=== PATIENT | male | born 1930 | race Caucasian/White ===

== ENCOUNTER → 2016-12-06 | Outpatient (CLI) | payer MEDICARE, OTHER ==
[2016-12-06 09:40] LABS: Basophils # (auto) 0 uL; Basophils % (auto) 0.3 % (0.0-2.0); Eosinophils # (auto) 0.2 uL; Eosinophils % (auto) 3.3 % (0.0-7.0); Hematocrit 42.6 % (41.0-53.0); Hemoglobin 13.5 g/dL (13.5-17.5); Lymphocytes # (auto) 0.7 uL; Lymphocytes % (auto) 10.3 % (10.0-50.0); Mean Corpuscular Hemoglobin 28.1 pg (28.0-32.0); Mean Corpuscular Hgb Conc. 31.7 g/dL (32.0-36.0); Mean Corpuscular Volume 88.7 fL (80.0-100.0); Mean Platelet Volume 9.1 fL (7.4-10.4); Monocytes # (auto) 0.5 uL; Monocytes % (auto) 7.3 % (0.0-12.0); Neutrophils # (auto) 5.7 uL; Neutrophils % (auto) 78.8 % (37.0-80.0); Platelet Count (auto) 236 10^3/uL (140-450); Red Cell Distribution Width 16.7 % (11.6-16.0); White Blood Cell 7.3 10^3/uL (4.4-10.8)
[2016-12-06 09:54] LABS: Urine Bilirubin Negative (Negative); Urine Blood Negative /uL (Negative); Urine Color Yellow (Yellow); Urine Glucose Normal (Normal); Urine Ketone Negative (Negative); Urine Nitrite Negative (Negative); Urine RBC 1 /hpf (0 - 3); Urine Squamous Epithelial Cell FEW /hpf (<5); Urine Urobilinogen Normal (Negative)
[2016-12-06 10:18] LABS: Albumin 3.6 g/dL (3.4-5.0); BUN/Creatinine Ratio 18.6; Bilirubin, Total 0.5 mg/dL (0.2-1.0); Calcium 8.4 mg/dL (8.5-10.1); Total Protein 7.6 g/dL (6.4-8.2)
[2016-12-06 10:26] LABS: Potassium 4.4 mmol/L (3.5-5.1)
== END | disposition home or self-care (01) ==
LOC: LAB 07:08
DX: D63.8 Anemia in other chronic diseases classified elsewhere (principal); I63.9 Cerebral infarction, unspecified; R73.9 Hyperglycemia, unspecified
CPT/HCPCS: 36415; 80053; 80061; 81001; 83036; 83540; 83550; 84443; 85025

== ENCOUNTER → 2017-06-06 | Outpatient (CLI) | payer MEDICARE, OTHER ==
[2017-06-06 07:52] LABS: Urine RBC None Seen /hpf (0 - 3)
[2017-06-06 08:01] LABS: Urine Bilirubin Negative (Negative); Urine Blood Negative /uL (Negative); Urine Color Yellow (Yellow); Urine Glucose Normal (Normal); Urine Ketone Negative (Negative); Urine Mucus FEW (None Seen); Urine Nitrite Negative (Negative); Urine Squamous Epithelial Cell FEW /hpf (<5); Urine Urobilinogen Normal (Negative); Urine pH 5.5 (5.0-8.0)
[2017-06-06 08:03] LABS: Basophils # (auto) 0 uL; Basophils % (auto) 0.4 % (0.0-2.0); CONDITION Y; Eosinophils # (auto) 0.3 uL; Eosinophils % (auto) 4.7 % (0.0-7.0); Hemoglobin 13.9 g/dL (13.5-17.5); Lymphocytes % (auto) 14.7 % (10.0-50.0); Mean Corpuscular Hemoglobin 31.3 pg (28.0-32.0); Mean Corpuscular Hgb Conc. 33.8 g/dL (32.0-36.0); Mean Corpuscular Volume 92.5 fL (80.0-100.0); Mean Platelet Volume 8.6 fL (7.4-10.4); Monocytes # (auto) 0.5 uL; Monocytes % (auto) 7.6 % (0.0-12.0); Neutrophils # (auto) 4.7 uL; Neutrophils % (auto) 72.6 % (37.0-80.0); Platelet Count (auto) 251 10^3/uL (140-450); Red Cell Distribution Width 14.9 % (11.6-16.0); White Blood Cell 6.5 10^3/uL (4.4-10.8)
[2017-06-06 08:30] LABS: Albumin 3.6 g/dL (3.4-5.0); BUN/Creatinine Ratio 17.5; Bilirubin, Total 0.5 mg/dL (0.2-1.0); Calcium 8.6 mg/dL (8.5-10.1); Total Protein 7.5 g/dL (6.4-8.2)
== END | disposition home or self-care (01) ==
LOC: LAB 06:39
PROVIDERS: ATTEND Family Medicine
DX: I63.9 Cerebral infarction, unspecified (principal); I10 Essential (primary) hypertension; E78.4 Other hyperlipidemia
CPT/HCPCS: 36415; 80053; 80061; 81001; 82306; 82607; 84443; 85025

== ENCOUNTER → 2017-10-15 | Outpatient (CLI) | payer MEDICARE, OTHER ==
[~2017-10-15] MED LIST: AMLO5TAB2 PO; ASCOCRY2 OR; ATO40T PO; CHOL200031 PO; CLOP75TA28 PO; CYCL1TAB18 PO; FINA1TAB10 OR; LEVO125T6 PO; MULT-775 OR; TELM80TA PO
[2017-10-15 08:28] LABS: Basophils # (auto) 0.1 uL; Basophils % (auto) 0.8 % (0.0-2.0); Eosinophils # (auto) 0.3 uL; Eosinophils % (auto) 5.2 % (0.0-7.0); Hematocrit 35.6 % (41.0-53.0); Hemoglobin 11.4 g/dL (13.5-17.5); Lymphocytes # (auto) 0.8 uL; Lymphocytes % (auto) 13.2 % (10.0-50.0); Mean Corpuscular Hemoglobin 28.7 pg (28.0-32.0); Mean Corpuscular Hgb Conc. 32.1 g/dL (32.0-36.0); Mean Corpuscular Volume 89.5 fL (80.0-100.0); Mean Platelet Volume 8.3 fL (6.9-10.8); Monocytes # (auto) 0.5 uL; Monocytes % (auto) 8.3 % (0.0-12.0); Neutrophils # (auto) 4.6 uL; Neutrophils % (auto) 72.5 % (37.0-80.0); Nucleated Red Blood Cells % 0.1 %; Platelet Count (auto) 296 10^3/uL (140-450); Red Cell Distribution Width 15.8 % (11.8-14.3); White Blood Cell 6.4 10^3/uL (4.4-10.8)
[2017-10-15 08:49] LABS: Albumin 3.7 g/dL (3.4-5.0); BUN/Creatinine Ratio 17.8; Bilirubin, Total 0.5 mg/dL (0.2-1.0); Calcium 8.5 mg/dL (8.5-10.1); Potassium 4.5 mmol/L (3.5-5.1); Total Protein 7.7 g/dL (6.4-8.2)
== END | disposition home or self-care (01) ==
LOC: LAB 06:34
PROVIDERS: ATTEND Family Medicine
DX: E61.1 Iron deficiency (principal); K57.93 Diverticulitis of intestine, part unspecified, without perforation or abscess with bleeding
CPT/HCPCS: 36415; 80053; 85025

== ENCOUNTER 2018-03-13 18:47 | Inpatient (IN) | payer MEDICARE, OTHER ==
[~2018-03-13] VITALS: Ht 170.2 cm; Wt 97.1 kg
[~2018-03-13 18:47] MED LIST changes: -LEVO125T6 PO; +LEVO125T7 PO
[2018-03-13 20:42] LABS: Basophils # (auto) 0 uL; Basophils % (auto) 0.4 % (0.0-2.0); Eosinophils # (auto) 0.2 uL; Eosinophils % (auto) 1.6 % (0.0-7.0); Hematocrit 31.2 % (41.0-53.0); Hemoglobin 10.4 g/dL (13.5-17.5); Lymphocytes # (auto) 0.7 uL; Lymphocytes % (auto) 6.9 % (10.0-50.0); Mean Corpuscular Hemoglobin 29.4 pg (28.0-32.0); Mean Corpuscular Hgb Conc. 33.3 g/dL (32.0-36.0); Mean Corpuscular Volume 88.2 fL (80.0-100.0); Monocytes # (auto) 0.6 uL; Monocytes % (auto) 6.5 % (0.0-12.0); Neutrophils # (auto) 8.5 uL; Neutrophils % (auto) 84.6 % (37.0-80.0); Nucleated Red Blood Cells % 0.1 %; Platelet Count (auto) 232 10^3/uL (140-450); Red Blood Cells 3.54 10^6/uL (4.5-5.90); Red Cell Distribution Width 18.4 % (11.8-14.3)
[2018-03-13 20:59] LABS: Albumin 2.8 g/dL (3.4-5.0); Amylase 52 U/L (25-115); Anion Gap 7 (5-15); BUN/Creatinine Ratio 15.9; Blood Urea Nitrogen 21 mg/dL (7-18); Calcium 7.4 mg/dL (8.5-10.1); Carbon Dioxide 23 mmol/L (21-32); Chloride 113 mmol/L (98-107); GFR African American 66 mL/min; GFR Non-African American 55 mL/min; Glucose 110 mg/dL (74-106); Lipase 278 U/L (73-393); Potassium 4.2 mmol/L (3.5-5.1); Sodium 143 mmol/L (136-145)
[2018-03-13 21:03] LABS: Prothrombin Time 10.9 sec (9.37-12.3)
[2018-03-13 21:04] LABS: Alanine Aminotransferase 17 U/L (16-61); Alkaline Phosphatase 64 U/L (45-117); Aspartate Aminotransferase 13 U/L (15-37); Bilirubin, Total 0.3 mg/dL (0.2-1.0); Total Protein 6.1 g/dL (6.4-8.2)
[2018-03-13] MEDS ORDERED: ONDANSETRON HCL 4 MG/2 ML VIAL IV PRN (23:30)
[2018-03-13] MEDS ORDERED: PANTOPRAZOLE 40 MG/10 ML VIAL IV ONE (23:30)
[2018-03-13] MEDS ORDERED: MORPHINE SULFATE 4 MG/ML SYR/VIAL IV PRN (23:30)
[2018-03-13] MEDS ORDERED: NITROGLYCERIN 0.4 MG SL TAB SL PRN (23:30)
[2018-03-13] MEDS ORDERED: CALCIUM GLUC 4.65meq/50ml D5AE 50 ML IV ONE (23:30)
[2018-03-13 23:59] LABS: Hematocrit 28.4 % (41.0-53.0); Hemoglobin 9.3 g/dL (13.5-17.5)
[2018-03-14] VITALS (10 sets, daily range): BP systolic 102–116; BP diastolic 47–62
[2018-03-14 04:55] LABS: Basophils # (auto) 0 uL; Basophils % (auto) 0.3 % (0.0-2.0); Eosinophils # (auto) 0.1 uL; Eosinophils % (auto) 0.8 % (0.0-7.0); Hematocrit 26.8 % (41.0-53.0); Hemoglobin 8.9 g/dL (13.5-17.5); Lymphocytes # (auto) 0.6 uL; Lymphocytes % (auto) 6.5 % (10.0-50.0); Mean Corpuscular Hemoglobin 29.7 pg (28.0-32.0); Mean Corpuscular Hgb Conc. 33.4 g/dL (32.0-36.0); Monocytes # (auto) 0.9 uL; Monocytes % (auto) 9.2 % (0.0-12.0); Neutrophils # (auto) 8.3 uL; Neutrophils % (auto) 83.2 % (37.0-80.0); Nucleated Red Blood Cells % 0.1 %; Platelet Count (auto) 199 10^3/uL (140-450); Red Cell Distribution Width 18.7 % (11.8-14.3)
[2018-03-14 05:17] LABS: Albumin 2.8 g/dL (3.4-5.0); Calcium 7.8 mg/dL (8.5-10.1); Potassium 4.6 mmol/L (3.5-5.1)
[2018-03-14 05:25] LABS: BUN/Creatinine Ratio 18.4
[2018-03-14 05:36] LABS: Bilirubin, Total 0.4 mg/dL (0.2-1.0)
[2018-03-14 06:09] LABS: Total Protein 5.8 g/dL (6.4-8.2)
[2018-03-14] MEDS: LEVOTHYROXINE SODIUM 50 MCG TAB PO SCH (06:50)
[2018-03-14] MEDS: LOSARTAN POTASSIUM 50 MG TAB PO SCH (10:37)
[2018-03-14] MEDS: PANTOPRAZOLE 40 MG/10 ML VIAL IV SCH ×2 (10:37→21:56)
[2018-03-14] MEDS ORDERED: FOLITAB14 OR (11:12)
[2018-03-14] MEDS ORDERED: OMEP20TA PO (11:12)
[2018-03-14] MEDS: amLODIPine BESYLATE 5 MG TAB PO SCH (11:33)
[2018-03-14] MEDS ORDERED: D5W/SOD CHLO 0.9% 1,000 ML IV ONE (12:30)
[2018-03-14 19:06] LABS: Basophils # (auto) 0 uL; Eosinophils # (auto) 0.2 uL; Hematocrit 24.4 % (41.0-53.0); Lymphocytes # (auto) 1.1 uL; Lymphocytes % (auto) 15.1 % (10.0-50.0); Monocytes # (auto) 0.6 uL; Nucleated Red Blood Cells % 0.1 %; Platelet Count (auto) 203 10^3/uL (140-450)
[2018-03-14 19:08] LABS: Basophils % (auto) 0.4 % (0.0-2.0); Eosinophils % (auto) 3.3 % (0.0-7.0); Hemoglobin 8.3 g/dL (13.5-17.5); Mean Corpuscular Hemoglobin 30.2 pg (28.0-32.0); Mean Corpuscular Hgb Conc. 34.1 g/dL (32.0-36.0); Mean Corpuscular Volume 88.4 fL (80.0-100.0); Monocytes % (auto) 9.2 % (0.0-12.0); Red Blood Cells 2.76 10^6/uL (4.5-5.90); Red Cell Distribution Width 18.2 % (11.8-14.3)
[2018-03-14] MEDS: ATORVASTATIN 20 MG TAB PO SCH (21:56)
[2018-03-14] MEDS: TEMAZEPAM 15 MG CAP PO PRN (21:59)
[2018-03-15 04:42] LABS: Basophils # (auto) 0 uL; Basophils % (auto) 0.5 % (0.0-2.0); Eosinophils # (auto) 0.4 uL; Eosinophils % (auto) 5.9 % (0.0-7.0); Monocytes # (auto) 0.6 uL; Neutrophils # (auto) 4.2 uL; Nucleated Red Blood Cells % 0.1 %
[2018-03-15 04:44] LABS: Hematocrit 23.8 % (41.0-53.0); Lymphocytes # (auto) 0.9 uL; Mean Corpuscular Hemoglobin 29.7 pg (28.0-32.0); Mean Corpuscular Hgb Conc. 33.6 g/dL (32.0-36.0); Mean Corpuscular Volume 88.5 fL (80.0-100.0); Monocytes % (auto) 9.7 % (0.0-12.0); Neutrophils % (auto) 68.9 % (37.0-80.0); Platelet Count (auto) 186 10^3/uL (140-450); Red Blood Cells 2.69 10^6/uL (4.5-5.90); Red Cell Distribution Width 18.5 % (11.8-14.3); White Blood Cell 6.1 10^3/uL (4.4-10.8)
[2018-03-15 04:45] LABS: Hemoglobin 8.1 g/dL (13.5-17.5)
[2018-03-15 04:56] LABS: Urine Bacteria NONE SEEN /hpf (None Seen); Urine Blood Negative /uL (Negative); Urine Mucus FEW (None Seen); Urine Specific Gravity 1.015 (1.001-1.035); Urine WBC <1 /hpf (0 - 3)
[2018-03-15 05:12] VITALS: BP 118/58
[2018-03-15] MEDS: LEVOTHYROXINE SODIUM 50 MCG TAB PO SCH (06:00)
[2018-03-15 08:30] VITALS: BP 104/59
[2018-03-15] MEDS: LOSARTAN POTASSIUM 50 MG TAB PO SCH (09:47)
[2018-03-15] MEDS: amLODIPine BESYLATE 5 MG TAB PO SCH (09:47)
[2018-03-15] MEDS: PANTOPRAZOLE 40 MG/10 ML VIAL IV SCH ×2 (09:58→22:10)
[2018-03-15 11:34] LABS: Basophils # (auto) 0 uL; Eosinophils # (auto) 0.2 uL; Hematocrit 23.8 % (41.0-53.0); Lymphocytes # (auto) 0.7 uL; Lymphocytes % (auto) 9.2 % (10.0-50.0); Mean Corpuscular Hemoglobin 29.2 pg (28.0-32.0)
[2018-03-15 11:36] LABS: Basophils % (auto) 0.4 % (0.0-2.0); Eosinophils % (auto) 2.6 % (0.0-7.0); Hemoglobin 7.8 g/dL (13.5-17.5); Mean Corpuscular Hgb Conc. 32.9 g/dL (32.0-36.0); Mean Corpuscular Volume 88.6 fL (80.0-100.0); Monocytes # (auto) 0.5 uL; Monocytes % (auto) 7.2 % (0.0-12.0); Neutrophils # (auto) 5.8 uL; Neutrophils % (auto) 80.6 % (37.0-80.0); Platelet Count (auto) 190 10^3/uL (140-450); Red Blood Cells 2.69 10^6/uL (4.5-5.90); Red Cell Distribution Width 18.5 % (11.8-14.3); White Blood Cell 7.2 10^3/uL (4.4-10.8)
[2018-03-15 12:30] VITALS: BP 126/57
[2018-03-15 16:32] VITALS: BP 114/53
[2018-03-15 17:54] LABS: Basophils # (auto) 0 uL; Eosinophils # (auto) 0.3 uL; Hemoglobin 7.6 g/dL (13.5-17.5); Lymphocytes # (auto) 0.9 uL; Neutrophils # (auto) 5.6 uL; White Blood Cell 7.5 10^3/uL (4.4-10.8)
[2018-03-15 17:56] LABS: Basophils % (auto) 0.4 % (0.0-2.0); Eosinophils % (auto) 3.7 % (0.0-7.0); Hematocrit 23.4 % (41.0-53.0); Lymphocytes % (auto) 12.2 % (10.0-50.0); Mean Corpuscular Hemoglobin 28.7 pg (28.0-32.0); Mean Corpuscular Hgb Conc. 32.5 g/dL (32.0-36.0); Mean Corpuscular Volume 88.5 fL (80.0-100.0); Monocytes # (auto) 0.7 uL; Monocytes % (auto) 8.8 % (0.0-12.0); Neutrophils % (auto) 74.9 % (37.0-80.0); Platelet Count (auto) 191 10^3/uL (140-450); Red Blood Cells 2.64 10^6/uL (4.5-5.90); Red Cell Distribution Width 17.8 % (11.8-14.3)
[2018-03-15 21:51] VITALS: BP 120/52
[2018-03-15] MEDS: TEMAZEPAM 15 MG CAP PO PRN (22:10)
[2018-03-15] MEDS: ATORVASTATIN 20 MG TAB PO SCH (22:10)
[2018-03-16 01:44] LABS: Basophils # (auto) 0 uL; Eosinophils # (auto) 0.3 uL; Hemoglobin 7.6 g/dL (13.5-17.5); Monocytes # (auto) 0.6 uL
[2018-03-16 01:46] LABS: Basophils % (auto) 0.3 % (0.0-2.0); Eosinophils % (auto) 3.8 % (0.0-7.0); Hematocrit 22.8 % (41.0-53.0); Lymphocytes % (auto) 14.2 % (10.0-50.0); Mean Corpuscular Hemoglobin 29.4 pg (28.0-32.0); Mean Corpuscular Hgb Conc. 33.2 g/dL (32.0-36.0); Mean Corpuscular Volume 88.6 fL (80.0-100.0); Neutrophils % (auto) 72.7 % (37.0-80.0); Nucleated Red Blood Cells % 0.1 %; Platelet Count (auto) 184 10^3/uL (140-450); Red Blood Cells 2.57 10^6/uL (4.5-5.90); White Blood Cell 6.8 10^3/uL (4.4-10.8)
[2018-03-16 04:39] VITALS: BP 121/62
[2018-03-16] MEDS: LEVOTHYROXINE SODIUM 50 MCG TAB PO SCH (06:51)
[2018-03-16 08:43] VITALS: BP 125/58
[2018-03-16] MEDS: PANTOPRAZOLE 40 MG/10 ML VIAL IV SCH ×2 (09:32→21:40)
[2018-03-16] MEDS: LOSARTAN POTASSIUM 50 MG TAB PO SCH (09:33)
[2018-03-16] MEDS: amLODIPine BESYLATE 5 MG TAB PO SCH (09:33)
[2018-03-16 10:42] LABS: Eosinophils # (auto) 0.1 uL; Eosinophils % (auto) 0.5 % (0.0-7.0); Hematocrit 23.8 % (41.0-53.0); Hemoglobin 7.7 g/dL (13.5-17.5); Mean Corpuscular Hemoglobin 28.8 pg (28.0-32.0); Mean Corpuscular Hgb Conc. 32.3 g/dL (32.0-36.0); Mean Corpuscular Volume 89.3 fL (80.0-100.0); Monocytes # (auto) 0.7 uL; Neutrophils # (auto) 9.9 uL
[2018-03-16 10:44] LABS: Basophils # (auto) 0 uL; Basophils % (auto) 0.3 % (0.0-2.0); Lymphocytes # (auto) 0.6 uL; Lymphocytes % (auto) 4.9 % (10.0-50.0); Monocytes % (auto) 6.4 % (0.0-12.0); Neutrophils % (auto) 87.9 % (37.0-80.0); Platelet Count (auto) 185 10^3/uL (140-450); Red Blood Cells 2.66 10^6/uL (4.5-5.90); Red Cell Distribution Width 18.2 % (11.8-14.3); White Blood Cell 11.3 10^3/uL (4.4-10.8)
[2018-03-16 11:52] VITALS: BP 133/72
[2018-03-16 16:27] VITALS: BP 111/48
[2018-03-16] MEDS: ATORVASTATIN 20 MG TAB PO SCH (21:40)
[2018-03-16] MEDS: TEMAZEPAM 15 MG CAP PO PRN (21:45)
[2018-03-16 22:00] VITALS: BP 110/51
[2018-03-17] VITALS (8 sets, daily range): BP systolic 108–153; BP diastolic 48–78
[2018-03-17] MEDS: LEVOTHYROXINE SODIUM 50 MCG TAB PO SCH (06:02)
[2018-03-17 06:50] LABS: Basophils # (auto) 0 uL; Eosinophils # (auto) 0 uL; Eosinophils % (auto) 0.2 % (0.0-7.0); Monocytes # (auto) 0.5 uL; Monocytes % (auto) 10.6 % (0.0-12.0)
[2018-03-17 06:52] LABS: Basophils % (auto) 0.5 % (0.0-2.0); Hematocrit 22.8 % (41.0-53.0); Hemoglobin 7.7 g/dL (13.5-17.5); Lymphocytes # (auto) 0.3 uL; Lymphocytes % (auto) 6.9 % (10.0-50.0); Mean Corpuscular Hemoglobin 30.2 pg (28.0-32.0); Mean Corpuscular Volume 88.7 fL (80.0-100.0); Neutrophils % (auto) 81.8 % (37.0-80.0); Nucleated Red Blood Cells % 0.1 %; Platelet Count (auto) 166 10^3/uL (140-450); Red Blood Cells 2.57 10^6/uL (4.5-5.90); White Blood Cell 4.9 10^3/uL (4.4-10.8)
[2018-03-17] MEDS: amLODIPine BESYLATE 5 MG TAB PO SCH (10:00)
[2018-03-17] MEDS: PANTOPRAZOLE 40 MG/10 ML VIAL IV SCH ×2 (10:08→22:05)
[2018-03-17] MEDS: LOSARTAN POTASSIUM 50 MG TAB PO SCH (10:08)
[2018-03-17] MEDS ORDERED: SODIUM CHLORIDE 0.9% 1,000 ML IV ONE ×2 (11:30)
[2018-03-17] MEDS: SODIUM CHLORIDE 0.9% 1,000 ML IV SCH ×2 (12:52→20:46)
[2018-03-17] MEDS ORDERED: GOLYTELY 4L KIT PO ONE (13:00)
[2018-03-17] MEDS: ACETAMINOPHEN 325 MG TAB PO PRN ×2 (13:04→20:54)
[2018-03-17 21:25] LABS: Hematocrit 27.6 % (41.0-53.0); Hemoglobin 9.3 g/dL (13.5-17.5)
[2018-03-17] MEDS: ATORVASTATIN 20 MG TAB PO SCH (22:05)
[2018-03-18] MEDS: SODIUM CHLORIDE 0.9% 1,000 ML IV SCH ×3 (04:30→17:39)
[2018-03-18 05:12] VITALS: BP 93/46
[2018-03-18] MEDS ORDERED: GOLYTELY 4L KIT PO ONE (06:00)
[2018-03-18] MEDS: LEVOTHYROXINE SODIUM 50 MCG TAB PO SCH (06:29)
[2018-03-18 07:07] LABS: Basophils # (auto) 0 uL; Basophils % (auto) 0.3 % (0.0-2.0); Eosinophils # (auto) 0 uL; Hematocrit 30.3 % (41.0-53.0); Hemoglobin 9.9 g/dL (13.5-17.5); Lymphocytes # (auto) 0.4 uL; Lymphocytes % (auto) 3.7 % (10.0-50.0); Mean Corpuscular Hemoglobin 29.6 pg (28.0-32.0); Mean Corpuscular Hgb Conc. 32.7 g/dL (32.0-36.0); Mean Corpuscular Volume 90.5 fL (80.0-100.0); Monocytes # (auto) 0.9 uL; Monocytes % (auto) 7.2 % (0.0-12.0); Neutrophils # (auto) 10.9 uL; Neutrophils % (auto) 88.8 % (37.0-80.0); Nucleated Red Blood Cells % 0.2 %; Platelet Count (auto) 136 10^3/uL (140-450); Red Blood Cells 3.34 10^6/uL (4.5-5.90); Red Cell Distribution Width 18.3 % (11.8-14.3); White Blood Cell 12.3 10^3/uL (4.4-10.8)
[2018-03-18] MEDS ORDERED: NALOXONE HCL 0.4 MG/ML VIAL ONE (08:26)
[2018-03-18] MEDS ORDERED: FLUMAZENIL 0.1 MG/ML INJ 10ML MDV IV ONE (08:26)
[2018-03-18] MEDS ORDERED: SODIUM CHLORIDE LOCK 10 ML ONE (08:27)
[2018-03-18] MEDS ORDERED: diphenhdrAMINE HCL 50 MG/1 ML VL ONE (08:27)
[2018-03-18 08:37] VITALS: BP 120/58
[2018-03-18] MEDS: PANTOPRAZOLE 40 MG/10 ML VIAL IV SCH ×2 (09:59→21:05)
[2018-03-18] MEDS: amLODIPine BESYLATE 5 MG TAB PO SCH (09:59)
[2018-03-18] MEDS: LOSARTAN POTASSIUM 50 MG TAB PO SCH (10:00)
[2018-03-18 13:00] VITALS: BP 111/52
[2018-03-18] MEDS: MIDAZOLAM HCL 5 MG/ML-1ML VIAL ONE ×3 (13:13→13:19)
[2018-03-18] MEDS: fentaNYL CITRATE 100 MCG/2 ML VL ONE ×3 (13:13→13:19)
[2018-03-18 16:49] VITALS: BP 151/61
[2018-03-18] MEDS: ACETAMINOPHEN 325 MG TAB PO PRN (20:29)
[2018-03-18] MEDS: ATORVASTATIN 20 MG TAB PO SCH (21:05)
[2018-03-18 21:29] VITALS: BP 128/63
[2018-03-18] MEDS: TEMAZEPAM 15 MG CAP PO PRN (23:12)
[2018-03-19] MEDS: SODIUM CHLORIDE 0.9% 1,000 ML IV SCH ×3 (04:35→21:12)
[2018-03-19] MEDS: ACETAMINOPHEN 325 MG TAB PO PRN ×3 (04:57→19:47)
[2018-03-19 05:14] VITALS: BP 105/59
[2018-03-19 06:00] VITALS: BP 156/82
[2018-03-19] MEDS: LEVOTHYROXINE SODIUM 50 MCG TAB PO SCH (06:02)
[2018-03-19 06:04] LABS: Basophils # (auto) 0 uL; Basophils % (auto) 0.3 % (0.0-2.0); Eosinophils # (auto) 0 uL; Hematocrit 26.3 % (41.0-53.0); Hemoglobin 9.2 g/dL (13.5-17.5); Lymphocytes # (auto) 0.3 uL; Lymphocytes % (auto) 2.9 % (10.0-50.0); Mean Corpuscular Hemoglobin 30.4 pg (28.0-32.0); Mean Corpuscular Hgb Conc. 34.9 g/dL (32.0-36.0); Mean Corpuscular Volume 87.1 fL (80.0-100.0); Neutrophils # (auto) 8.3 uL; Neutrophils % (auto) 86.8 % (37.0-80.0); Platelet Count (auto) 136 10^3/uL (140-450); Red Blood Cells 3.02 10^6/uL (4.5-5.90); Red Cell Distribution Width 18.2 % (11.8-14.3); White Blood Cell 9.5 10^3/uL (4.4-10.8)
[2018-03-19] MEDS: PANTOPRAZOLE 40 MG/10 ML VIAL IV SCH ×2 (08:50→21:14)
[2018-03-19] MEDS: LOSARTAN POTASSIUM 50 MG TAB PO SCH (08:51)
[2018-03-19] MEDS: amLODIPine BESYLATE 5 MG TAB PO SCH (08:52)
[2018-03-19] MEDS ORDERED: metroNIDAZOLE 500MG/100ML 100 ML IV SCH (11:00)
[2018-03-19] MEDS: PIPERACILLIN-TAZOB 3.375GM 100 ML IV SCH ×2 (11:23→17:36)
[2018-03-19 13:00] VITALS: BP 114/56
[2018-03-19] MEDS: metroNIDAZOLE 500MG/100ML 100 ML IV SCH ×2 (13:49→21:11)
[2018-03-19 17:00] VITALS: BP 103/53
[2018-03-19 20:22] VITALS: BP 93/61
[2018-03-19] MEDS: ATORVASTATIN 20 MG TAB PO SCH (21:11)
[2018-03-19] MEDS: TEMAZEPAM 15 MG CAP PO PRN (21:11)
[2018-03-20] MEDS: PIPERACILLIN-TAZOB 3.375GM 100 ML IV SCH ×4 (00:04→17:48)
[2018-03-20 00:17] VITALS: BP 150/95
[2018-03-20] MEDS ORDERED: VANCOMYCIN PER PHARMACY 0 MG IV SCH (00:30)
[2018-03-20] MEDS ORDERED: VANCOMYCIN 1GM/250ML 250 ML IV SCH (01:15)
[2018-03-20 04:22] VITALS: BP 108/56
[2018-03-20] MEDS: metroNIDAZOLE 500MG/100ML 100 ML IV SCH ×3 (05:25→21:31)
[2018-03-20] MEDS: SODIUM CHLORIDE 0.9% 1,000 ML IV SCH ×3 (05:26→21:32)
[2018-03-20 05:28] LABS: Urine Bacteria MANY /hpf (None Seen); Urine Blood 2+ /uL (Negative); Urine Specific Gravity 1.029 (1.001-1.035); Urine WBC 66 /hpf (0 - 3)
[2018-03-20 06:12] LABS: Albumin 2.3 g/dL (3.4-5.0); BUN/Creatinine Ratio 13.2; Calcium 6.9 mg/dL (8.5-10.1); Potassium 3.4 mmol/L (3.5-5.1)
[2018-03-20 06:14] LABS: Bilirubin, Total 0.9 mg/dL (0.2-1.0); Total Protein 5.8 g/dL (6.4-8.2)
[2018-03-20] MEDS: LEVOTHYROXINE SODIUM 50 MCG TAB PO SCH (06:28)
[2018-03-20] MEDS: ACETAMINOPHEN 325 MG TAB PO PRN (06:34)
[2018-03-20 07:42] VITALS: BP 102/54
[2018-03-20] MEDS: PANTOPRAZOLE 40 MG/10 ML VIAL IV SCH ×2 (09:20→21:32)
[2018-03-20] MEDS: VANCOMYCIN 1GM/250ML 250 ML IV SCH (09:21)
[2018-03-20] MEDS: HYDROcodone-ACET 5/325MG TAB PO PRN ×2 (09:21→20:25)
[2018-03-20] MEDS ORDERED: POTASSIUM CHL 10% (20 MEQ/15ML) 15ml ORAL SOLN PO ONE (09:30)
[2018-03-20] MEDS: amLODIPine BESYLATE 5 MG TAB PO SCH (10:00)
[2018-03-20] MEDS: LOSARTAN POTASSIUM 50 MG TAB PO SCH (10:00)
[2018-03-20] MEDS ORDERED: POTASSIUM CHL 20 Meq TABLET PO ONE (10:00)
[2018-03-20 11:23] VITALS: BP 141/57
[2018-03-20 17:28] VITALS: BP 104/60
[2018-03-20] MEDS: ATORVASTATIN 20 MG TAB PO SCH (21:32)
[2018-03-20] MEDS: TEMAZEPAM 15 MG CAP PO PRN (21:39)
[2018-03-20 21:44] VITALS: BP 100/49
[2018-03-21] MEDS: PIPERACILLIN-TAZOB 3.375GM 100 ML IV SCH ×2 (02:11→06:43)
[2018-03-21 04:48] VITALS: BP 133/98
[2018-03-21] MEDS: metroNIDAZOLE 500MG/100ML 100 ML IV SCH (05:41)
[2018-03-21] MEDS: SODIUM CHLORIDE 0.9% 1,000 ML IV SCH ×3 (05:41→20:54)
[2018-03-21 06:40] LABS: Basophils # (auto) 0 uL; Basophils % (auto) 0.3 % (0.0-2.0); Eosinophils # (auto) 0 uL; Eosinophils % (auto) 0.1 % (0.0-7.0); Hematocrit 25.6 % (41.0-53.0); Hemoglobin 8.7 g/dL (13.5-17.5); Lymphocytes # (auto) 0.3 uL; Lymphocytes % (auto) 2.2 % (10.0-50.0); Mean Corpuscular Hemoglobin 29.5 pg (28.0-32.0); Mean Corpuscular Hgb Conc. 33.8 g/dL (32.0-36.0); Mean Corpuscular Volume 87.1 fL (80.0-100.0); Monocytes % (auto) 6.8 % (0.0-12.0); Neutrophils # (auto) 12.7 uL; Neutrophils % (auto) 90.6 % (37.0-80.0); Platelet Count (auto) 156 10^3/uL (140-450); Red Blood Cells 2.94 10^6/uL (4.5-5.90); Red Cell Distribution Width 18.4 % (11.8-14.3)
[2018-03-21] MEDS: LEVOTHYROXINE SODIUM 50 MCG TAB PO SCH (06:43)
[2018-03-21] MEDS: HYDROcodone-ACET 5/325MG TAB PO PRN (06:43)
[2018-03-21 07:08] LABS: Potassium 3.4 mmol/L (3.5-5.1)
[2018-03-21 07:19] LABS: Albumin 2.2 g/dL (3.4-5.0); BUN/Creatinine Ratio 18.5; Calcium 7.2 mg/dL (8.5-10.1)
[2018-03-21 07:21] LABS: Bilirubin, Total 0.7 mg/dL (0.2-1.0)
[2018-03-21 08:49] VITALS: BP 121/66
[2018-03-21] MEDS: VANCOMYCIN 1GM/250ML 250 ML IV SCH (10:13)
[2018-03-21] MEDS: PANTOPRAZOLE 40 MG/10 ML VIAL IV SCH ×2 (10:13→21:53)
[2018-03-21] MEDS: LOSARTAN POTASSIUM 50 MG TAB PO SCH (10:14)
[2018-03-21] MEDS: amLODIPine BESYLATE 5 MG TAB PO SCH (10:19)
[2018-03-21 11:58] VITALS: BP 111/55
[2018-03-21] MEDS ORDERED: LEVOFLOXACIN 500MG 100 ML IV ONE (12:45)
[2018-03-21] MEDS ORDERED: POTASSIUM CHL 20 Meq TABLET PO ONE (14:00)
[2018-03-21 16:55] VITALS: BP 128/66
[2018-03-21] MEDS: ACETAMINOPHEN 325 MG TAB PO PRN (20:55)
[2018-03-21 21:44] VITALS: BP 130/57
[2018-03-21] MEDS: TEMAZEPAM 15 MG CAP PO PRN (21:52)
[2018-03-21] MEDS: ATORVASTATIN 20 MG TAB PO SCH (21:53)
[2018-03-22] MEDS: SODIUM CHLORIDE 0.9% 1,000 ML IV SCH (04:30)
[2018-03-22 04:50] VITALS: BP 132/75
[2018-03-22 06:00] LABS: Basophils # (auto) 0 uL; Basophils % (auto) 0.1 % (0.0-2.0); Eosinophils # (auto) 0 uL; Eosinophils % (auto) 0.2 % (0.0-7.0); Hematocrit 26.6 % (41.0-53.0); Lymphocytes # (auto) 0.5 uL; Lymphocytes % (auto) 3.6 % (10.0-50.0); Mean Corpuscular Hemoglobin 29.6 pg (28.0-32.0); Mean Corpuscular Hgb Conc. 33.9 g/dL (32.0-36.0); Mean Corpuscular Volume 87.3 fL (80.0-100.0); Monocytes % (auto) 7.5 % (0.0-12.0); Neutrophils # (auto) 11.6 uL; Neutrophils % (auto) 88.6 % (37.0-80.0); Nucleated Red Blood Cells % 0.1 %; Platelet Count (auto) 192 10^3/uL (140-450); Red Blood Cells 3.05 10^6/uL (4.5-5.90); Red Cell Distribution Width 18.7 % (11.8-14.3); White Blood Cell 13.1 10^3/uL (4.4-10.8)
[2018-03-22] MEDS: LEVOTHYROXINE SODIUM 50 MCG TAB PO SCH (06:15)
[2018-03-22] MEDS: ACETAMINOPHEN 325 MG TAB PO PRN (06:16)
[2018-03-22 06:21] LABS: Albumin 2.3 g/dL (3.4-5.0); BUN/Creatinine Ratio 16.8; Bilirubin, Total 0.5 mg/dL (0.2-1.0); Calcium 7.4 mg/dL (8.5-10.1); Potassium 3.3 mmol/L (3.5-5.1); Total Protein 6.4 g/dL (6.4-8.2)
[2018-03-22 09:00] VITALS: BP 115/72
[2018-03-22] MEDS ORDERED: LEVOFLOXACIN 250MG 50 ML IV SCH (10:00)
[2018-03-22] MEDS ORDERED: LEVOFLOXACIN 500MG 100 ML IV SCH (10:00)
[2018-03-22] MEDS: PANTOPRAZOLE 40 MG/10 ML VIAL IV SCH ×2 (10:00→11:00)
[2018-03-22] MEDS: LOSARTAN POTASSIUM 50 MG TAB PO SCH (11:01)
[2018-03-22] MEDS: amLODIPine BESYLATE 5 MG TAB PO SCH (11:02)
[2018-03-22] MEDS ORDERED: POTASSIUM CHL 10% (20 MEQ/15ML) 15ml ORAL SOLN PO SCH (11:16)
[2018-03-22 13:00] VITALS: BP 123/64
== END 2018-03-22 14:30 | disposition home or self-care (01) | DRG 377 ==
LOC: EDUNIT# 18:47 → EDBD 18:47 → ER 18:54 → WEST WING 18:55 → DOU IN ICU 03-14 00:45 → TELE-EAST 03-14 23:05
PROVIDERS: ADMIT Nurse Practitioner; ATTEND Family Medicine
PROC: 30233N1 Transfusion of Nonautologous Red Blood Cells into Peripheral Vein, Percutaneous Approach (ICD-10-PCS; 2018-03-13)
PROC: 0DJD8ZZ Inspection of Lower Intestinal Tract, Via Natural or Artificial Opening Endoscopic (ICD-10-PCS; principal; 2018-03-18 13:05)
DX: K57.51 Diverticulosis of both small and large intestine without perforation or abscess with bleeding (principal); A41.9 Sepsis, unspecified organism; J18.9 Pneumonia, unspecified organism; E44.0 Moderate protein-calorie malnutrition; D50.0 Iron deficiency anemia secondary to blood loss (chronic); N18.3 Chronic kidney disease, stage 3 (moderate); E83.51 Hypocalcemia; I48.91 Unspecified atrial fibrillation; F17.210 Nicotine dependence, cigarettes, uncomplicated; N39.0 Urinary tract infection, site not specified; K64.8 Other hemorrhoids; K63.5 Polyp of colon; E78.00 Pure hypercholesterolemia, unspecified; I12.9 Hypertensive chronic kidney disease with stage 1 through stage 4 chronic kidney disease, or unspecified chronic kidney disease; K52.9 Noninfective gastroenteritis and colitis, unspecified; D12.2 Benign neoplasm of ascending colon; E03.9 Hypothyroidism, unspecified; B95.61 Methicillin susceptible Staphylococcus aureus infection as the cause of diseases classified elsewhere; I49.3 Ventricular premature depolarization; Z82.49 Family history of ischemic heart disease and other diseases of the circulatory system; Z68.33 Body mass index [BMI] 33.0-33.9, adult; Z86.73 Personal history of transient ischemic attack (TIA), and cerebral infarction without residual deficits
CPT/HCPCS: 36415; 71045; 71046; 74176; 80053; 81001; 82150; 82270; 83690; 84484; 85014; 85018; 85025; 85610; 85730; 86850; 86900; 86901; 86920; 87040; 87077; 87081; 87086; 87088; 87186; 93005; 96374; 96375; C9113; J0610; J1956; J2250; J2405; J2543; J3490; J7042

== ENCOUNTER 2018-04-12 14:36 | Inpatient (IN) | payer MEDICARE, OTHER ==
[~2018-04-12] VITALS: Ht 172.7 cm; Wt 86.7 kg
[~2018-04-12 14:36] MED LIST changes: +FOLITAB14 OR; +OMEP20TA PO
[2018-04-12 15:36] LABS: Basophils # (auto) 0 uL; Basophils % (auto) 0.4 % (0.0-2.0); Eosinophils # (auto) 0.1 uL; Eosinophils % (auto) 1.1 % (0.0-7.0); Hematocrit 30.8 % (41.0-53.0); Hemoglobin 9.9 g/dL (13.5-17.5); Lymphocytes # (auto) 0.5 uL; Mean Corpuscular Hemoglobin 27.7 pg (28.0-32.0); Mean Corpuscular Hgb Conc. 32.3 g/dL (32.0-36.0); Mean Corpuscular Volume 85.8 fL (80.0-100.0); Monocytes # (auto) 0.5 uL; Monocytes % (auto) 6.9 % (0.0-12.0); Neutrophils # (auto) 6.8 uL; Neutrophils % (auto) 85.6 % (37.0-80.0); Platelet Count (auto) 324 10^3/uL (140-450); Red Blood Cells 3.59 10^6/uL (4.5-5.90); Red Cell Distribution Width 18.6 % (11.8-14.3); White Blood Cell 7.9 10^3/uL (4.4-10.8)
[2018-04-12 15:58] LABS: Alanine Aminotransferase 14 U/L (16-61); Alkaline Phosphatase 81 U/L (45-117); Anion Gap 7 (5-15); Aspartate Aminotransferase 11 U/L (15-37); BUN/Creatinine Ratio 14.2; Bilirubin, Total 0.4 mg/dL (0.2-1.0); Blood Urea Nitrogen 17 mg/dL (7-18); Calcium 8.5 mg/dL (8.5-10.1); Carbon Dioxide 25 mmol/L (21-32); Chloride 107 mmol/L (98-107); GFR African American 74 mL/min; GFR Non-African American 61 mL/min; Glucose 99 mg/dL (74-106); Magnesium 2.8 mg/dL (1.6-2.6); Potassium 3.6 mmol/L (3.5-5.1); Sodium 139 mmol/L (136-145); Total Protein 8.3 g/dL (6.4-8.2)
[2018-04-12 16:20] LABS: INR 0.97 (0.9-1.15); Partial Thromboplastin Time 27.1 sec (23.78-33.04); Prothrombin Time 10.4 sec (9.27-12.13)
[2018-04-12] MEDS ORDERED: IOHEXOL 350 MG/ML 100ML IJ ONE (16:31)
[2018-04-12] MEDS ORDERED: NITROGLYCERIN 0.4 MG SL TAB SL PRN (23:30)
[2018-04-12] MEDS ORDERED: ACETAMINOPHEN 500 MG TAB PO PRN (23:30)
[2018-04-12] MEDS ORDERED: MORPHINE SULFATE 8mg/ml INJ SDV IV PRN (23:30)
[2018-04-12] MEDS ORDERED: ZOLPIDEM TARTRATE 5 MG TAB PO PRN (23:30)
[2018-04-12] MEDS ORDERED: ONDANSETRON HCL 4 MG/2 ML VIAL IV PRN (23:30)
[2018-04-13] VITALS (7 sets, daily range): BP systolic 132–149; BP diastolic 56–67
[2018-04-13] MEDS ORDERED: ALBUTEROL SULF 2.5 MG/0.5ML(0.5%) NEB SOLN NEB PRN
[2018-04-13] MEDS: HYDROcodone-ACET 5/325MG TAB PO PRN ×4 (01:44→21:34)
[2018-04-13 02:57] LABS: Urine Bacteria FEW /hpf (None Seen); Urine Blood Negative /uL (Negative); Urine WBC 2 /hpf (0 - 3)
[2018-04-13 03:08] LABS: Urine Specific Gravity > 1.050 (1.001-1.035)
[2018-04-13] MEDS: LEVOTHYROXINE SODIUM 50 MCG TAB PO SCH (06:03)
[2018-04-13 06:43] LABS: Basophils # (auto) 0 uL; Basophils % (auto) 0.3 % (0.0-2.0); Eosinophils # (auto) 0 uL; Eosinophils % (auto) 0.1 % (0.0-7.0); Hematocrit 29.1 % (41.0-53.0); Hemoglobin 9.6 g/dL (13.5-17.5); Lymphocytes # (auto) 0.6 uL; Lymphocytes % (auto) 5.7 % (10.0-50.0); Mean Corpuscular Hemoglobin 28.1 pg (28.0-32.0); Mean Corpuscular Volume 85.1 fL (80.0-100.0); Monocytes % (auto) 8.9 % (0.0-12.0); Neutrophils # (auto) 9.2 uL; Platelet Count (auto) 274 10^3/uL (140-450); Red Blood Cells 3.42 10^6/uL (4.5-5.90); Red Cell Distribution Width 18.6 % (11.8-14.3); White Blood Cell 10.8 10^3/uL (4.4-10.8)
[2018-04-13 07:00] LABS: Calcium 8.5 mg/dL (8.5-10.1)
[2018-04-13] MEDS: FOLIC ACID 1 MG TAB PO SCH (09:47)
[2018-04-13] MEDS: amLODIPine BESYLATE 5 MG TAB PO SCH (09:48)
[2018-04-13] MEDS: ATORVASTATIN 20 MG TAB PO SCH (15:45)
[2018-04-14 04:39] VITALS: BP 134/61
[2018-04-14] MEDS: LEVOTHYROXINE SODIUM 50 MCG TAB PO SCH (05:55)
[2018-04-14] MEDS: HYDROcodone-ACET 5/325MG TAB PO PRN ×4 (05:59→23:31)
[2018-04-14 06:45] LABS: Basophils # (auto) 0 uL; Basophils % (auto) 0.4 % (0.0-2.0); Eosinophils # (auto) 0 uL; Eosinophils % (auto) 0.3 % (0.0-7.0); Hematocrit 27.1 % (41.0-53.0); Lymphocytes # (auto) 0.4 uL; Lymphocytes % (auto) 3.9 % (10.0-50.0); Mean Corpuscular Hemoglobin 27.9 pg (28.0-32.0); Mean Corpuscular Volume 84.5 fL (80.0-100.0); Monocytes # (auto) 0.9 uL; Monocytes % (auto) 8.3 % (0.0-12.0); Neutrophils # (auto) 9.9 uL; Neutrophils % (auto) 87.1 % (37.0-80.0); Platelet Count (auto) 254 10^3/uL (140-450); Red Blood Cells 3.21 10^6/uL (4.5-5.90); Red Cell Distribution Width 18.1 % (11.8-14.3); White Blood Cell 11.4 10^3/uL (4.4-10.8)
[2018-04-14 06:53] LABS: Albumin 2.5 g/dL (3.4-5.0); Calcium 8.4 mg/dL (8.5-10.1); Potassium 3.9 mmol/L (3.5-5.1)
[2018-04-14 06:55] LABS: BUN/Creatinine Ratio 18.4
[2018-04-14 06:58] LABS: Bilirubin, Total 0.5 mg/dL (0.2-1.0); Total Protein 7.7 g/dL (6.4-8.2)
[2018-04-14 08:53] VITALS: BP 111/57
[2018-04-14] MEDS: FOLIC ACID 1 MG TAB PO SCH (10:15)
[2018-04-14] MEDS: amLODIPine BESYLATE 5 MG TAB PO SCH (10:16)
[2018-04-14 12:58] VITALS: BP 111/52
[2018-04-14] MEDS: ATORVASTATIN 20 MG TAB PO SCH (21:31)
[2018-04-14 21:52] VITALS: BP 133/61
[2018-04-15] VITALS (7 sets, daily range): BP systolic 107–149; BP diastolic 47–64
[2018-04-15] MEDS: HYDROcodone-ACET 5/325MG TAB PO PRN ×4 (04:13→15:53)
[2018-04-15] MEDS ORDERED: PHENYLEPHRINE HCL 10 MG/ML VL ONE (04:55)
[2018-04-15 06:19] LABS: Basophils # (auto) 0 uL; Basophils % (auto) 0.3 % (0.0-2.0); Eosinophils # (auto) 0.2 uL; Eosinophils % (auto) 1.8 % (0.0-7.0); Hematocrit 25.7 % (41.0-53.0); Hemoglobin 8.6 g/dL (13.5-17.5); Lymphocytes # (auto) 0.6 uL; Lymphocytes % (auto) 7.2 % (10.0-50.0); Mean Corpuscular Hemoglobin 28.2 pg (28.0-32.0); Mean Corpuscular Hgb Conc. 33.6 g/dL (32.0-36.0); Mean Corpuscular Volume 84.1 fL (80.0-100.0); Monocytes % (auto) 11.2 % (0.0-12.0); Neutrophils # (auto) 6.9 uL; Neutrophils % (auto) 79.5 % (37.0-80.0); Platelet Count (auto) 245 10^3/uL (140-450); Red Blood Cells 3.06 10^6/uL (4.5-5.90); White Blood Cell 8.7 10^3/uL (4.4-10.8)
[2018-04-15 06:26] LABS: Potassium 3.7 mmol/L (3.5-5.1)
[2018-04-15] MEDS: LEVOTHYROXINE SODIUM 50 MCG TAB PO SCH (06:34)
[2018-04-15 06:37] LABS: Albumin 2.3 g/dL (3.4-5.0); BUN/Creatinine Ratio 23.5; Calcium 8.2 mg/dL (8.5-10.1)
[2018-04-15 06:47] LABS: Bilirubin, Total 0.5 mg/dL (0.2-1.0); Total Protein 7.3 g/dL (6.4-8.2)
[2018-04-15] MEDS ORDERED: ADENOSINE 75 MG in GIVE UN-DILUTED 0 ML IV STA (08:50)
[2018-04-15] MEDS: FOLIC ACID 1 MG TAB PO SCH (08:55)
[2018-04-15] MEDS: amLODIPine BESYLATE 5 MG TAB PO SCH (08:55)
[2018-04-15] MEDS: ATORVASTATIN 20 MG TAB PO SCH (21:32)
[2018-04-16 04:05] VITALS: BP 149/63
[2018-04-16 05:42] VITALS: BP 129/56
[2018-04-16 05:50] LABS: Basophils # (auto) 0 uL; Basophils % (auto) 0.3 % (0.0-2.0); Eosinophils # (auto) 0 uL; Eosinophils % (auto) 0.2 % (0.0-7.0); Hematocrit 27.7 % (41.0-53.0); Lymphocytes # (auto) 0.5 uL; Lymphocytes % (auto) 4.3 % (10.0-50.0); Mean Corpuscular Hemoglobin 27.7 pg (28.0-32.0); Mean Corpuscular Hgb Conc. 32.7 g/dL (32.0-36.0); Mean Corpuscular Volume 84.7 fL (80.0-100.0); Monocytes # (auto) 1.1 uL; Monocytes % (auto) 10.2 % (0.0-12.0); Neutrophils # (auto) 9.1 uL; Nucleated Red Blood Cells % 0.1 %; Platelet Count (auto) 292 10^3/uL (140-450); Red Blood Cells 3.26 10^6/uL (4.5-5.90); Red Cell Distribution Width 18.5 % (11.8-14.3); White Blood Cell 10.7 10^3/uL (4.4-10.8)
[2018-04-16] MEDS: HYDROcodone-ACET 5/325MG TAB PO PRN ×2 (06:00→10:03)
[2018-04-16] MEDS: LEVOTHYROXINE SODIUM 50 MCG TAB PO SCH (06:01)
[2018-04-16 06:11] LABS: Albumin 2.5 g/dL (3.4-5.0); BUN/Creatinine Ratio 19.5; Bilirubin, Total 0.5 mg/dL (0.2-1.0); Calcium 8.1 mg/dL (8.5-10.1); Potassium 3.7 mmol/L (3.5-5.1); Total Protein 7.9 g/dL (6.4-8.2)
[2018-04-16] MEDS: FOLIC ACID 1 MG TAB PO SCH (09:20)
[2018-04-16] MEDS: amLODIPine BESYLATE 5 MG TAB PO SCH (09:20)
[2018-04-16 10:32] VITALS: BP 100/48
[2018-04-16 11:42] VITALS: BP 111/57
[2018-04-16 12:33] VITALS: BP 125/59
== END 2018-04-16 12:46 | disposition home or self-care (01) | DRG 206 ==
LOC: EDBD 14:36 → EDUNIT# 14:36 → ER 14:41 → TELE 14:42 → TELE-WESTW 04-13 01:25
PROVIDERS: ADMIT Nurse Practitioner Family; ATTEND Family Medicine
DX: M94.0 Chondrocostal junction syndrome [Tietze] (principal); E44.0 Moderate protein-calorie malnutrition; N18.3 Chronic kidney disease, stage 3 (moderate); I12.9 Hypertensive chronic kidney disease with stage 1 through stage 4 chronic kidney disease, or unspecified chronic kidney disease; E03.9 Hypothyroidism, unspecified; E78.00 Pure hypercholesterolemia, unspecified; F17.210 Nicotine dependence, cigarettes, uncomplicated; G89.29 Other chronic pain; D50.0 Iron deficiency anemia secondary to blood loss (chronic); K80.20 Calculus of gallbladder without cholecystitis without obstruction; F41.9 Anxiety disorder, unspecified; K57.90 Diverticulosis of intestine, part unspecified, without perforation or abscess without bleeding; N40.0 Benign prostatic hyperplasia without lower urinary tract symptoms; Z79.899 Other long term (current) drug therapy; Z82.3 Family history of stroke; Z82.49 Family history of ischemic heart disease and other diseases of the circulatory system; Z86.73 Personal history of transient ischemic attack (TIA), and cerebral infarction without residual deficits
CPT/HCPCS: 36415; 71045; 71275; 78452; 80048; 80053; 81001; 83735; 83880; 84443; 84484; 85025; 85379; 85610; 85730; 87081; 93005; 93017; 93306; 94761; J0153

== ENCOUNTER 2018-04-24 12:45 | Inpatient (IN) | payer MEDICARE, OTHER ==
[~2018-04-24] VITALS: Ht 172.7 cm; Wt 101.4 kg
[2018-04-24] MEDS ORDERED: SODIUM CHLORIDE 0.9% 1,000 ML IV ONE (13:10)
[2018-04-24 13:57] LABS: Lactic Acid w/Reflex 2.9 mmol/L (0.4-2.0)
[2018-04-24 14:05] LABS: Basophils # (auto) 0 uL; Eosinophils # (auto) 0 uL; Mean Corpuscular Hemoglobin 25.6 pg (28.0-32.0); White Blood Cell 21.3 10^3/uL (4.4-10.8)
[2018-04-24 14:09] LABS: Basophils % (auto) 0.2 % (0.0-2.0); Hematocrit 30.4 % (41.0-53.0); Hemoglobin 9.4 g/dL (13.5-17.5); Lymphocytes # (auto) 0.3 uL; Lymphocytes % (auto) 1.3 % (10.0-50.0); Mean Corpuscular Volume 82.6 fL (80.0-100.0); Monocytes # (auto) 0.8 uL; Monocytes % (auto) 3.7 % (0.0-12.0); Neutrophils # (auto) 20.2 uL; Neutrophils % (auto) 94.8 % (37.0-80.0); Platelet Count (auto) 470 10^3/uL (140-450); Red Blood Cells 3.68 10^6/uL (4.5-5.90); Red Cell Distribution Width 19.1 % (11.8-14.3)
[2018-04-24 14:17] LABS: INR 1.06 (0.9-1.15); Prothrombin Time 11.3 sec (9.27-12.13)
[2018-04-24] MEDS ORDERED: CLINDAMYCIN 600MG IV 50 ML IV ONE (14:30)
[2018-04-24] MEDS ORDERED: PIPERACILLIN-TAZOB 3.375GM 100 ML IV ONE (14:30)
[2018-04-24] MEDS ORDERED: SODIUM BICARBONATE 50ML VIAL 50 ML in SOD CHL 0.45% 1,000 ML IV ONE (14:45)
[2018-04-24] MEDS ORDERED: PROMETHAZINE HCL 25 MG/ML 1ML IV PRN (15:00)
[2018-04-24] MEDS ORDERED: cefTRIAXone 1GM/10ml IVPUSH 10 ML IV ONE (15:00)
[2018-04-24] MEDS ORDERED: LACTULOSE 20Gm/30ML SOLN PO PRN (15:00)
[2018-04-24] MEDS ORDERED: ACETAMINOPHEN 500 MG TAB PO PRN (15:00)
[2018-04-24] MEDS ORDERED: MORPHINE SULF(PF) 0.5MG/ML 10ML VIAL IV PRN (15:00)
[2018-04-24] MEDS ORDERED: PANTOPRAZOLE 40 MG/10 ML VIAL IV ONE (15:00)
[2018-04-24] MEDS ORDERED: NITROGLYCERIN 0.4 MG SL TAB SL PRN (15:00)
[2018-04-24] MEDS ORDERED: ASPirin 81 mg TAB PO ONE (15:15)
[2018-04-24] MEDS: ENOXAPARIN SOD 40 MG/0.4 ML SYRINGE SC SCH (15:46)
[2018-04-24] MEDS: SODIUM CHLORIDE 0.9% 1,000 ML IV SCH ×2 (16:10→23:06)
[2018-04-24 17:29] LABS: Albumin 1.6 g/dL (3.4-5.0); BUN/Creatinine Ratio 28.6; Bilirubin, Total 1.1 mg/dL (0.2-1.0); Calcium 7.8 mg/dL (8.5-10.1); Potassium 3.9 mmol/L (3.5-5.1); Total Protein 7.3 g/dL (6.4-8.2)
[2018-04-24 19:02] LABS: Hematocrit 29.3 % (41.0-53.0); Hemoglobin 9.2 g/dL (13.5-17.5)
[2018-04-24] MEDS: ATORVASTATIN 20 MG TAB PO SCH (22:00)
[2018-04-25 00:52] LABS: Hematocrit 29.3 % (41.0-53.0); Hemoglobin 9.1 g/dL (13.5-17.5)
[2018-04-25 06:05] LABS: Basophils # (auto) 0 uL; Basophils % (auto) 0.2 % (0.0-2.0); Eosinophils # (auto) 0 uL; Hemoglobin 9.3 g/dL (13.5-17.5); Lymphocytes # (auto) 0.4 uL; Mean Corpuscular Hgb Conc. 31.7 g/dL (32.0-36.0); Neutrophils # (auto) 16.5 uL; Red Blood Cells 3.53 10^6/uL (4.5-5.90)
[2018-04-25 06:08] LABS: Hematocrit 29.2 % (41.0-53.0); Lymphocytes % (auto) 2.5 % (10.0-50.0); Mean Corpuscular Hemoglobin 26.3 pg (28.0-32.0); Mean Corpuscular Volume 82.8 fL (80.0-100.0); Monocytes # (auto) 0.8 uL; Monocytes % (auto) 4.6 % (0.0-12.0); Neutrophils % (auto) 92.7 % (37.0-80.0); Platelet Count (auto) 400 10^3/uL (140-450); Red Cell Distribution Width 19.4 % (11.8-14.3); White Blood Cell 17.8 10^3/uL (4.4-10.8)
[2018-04-25 06:09] LABS: Albumin 1.4 g/dL (3.4-5.0); BUN/Creatinine Ratio 34.3; Calcium 7.4 mg/dL (8.5-10.1); Potassium 3.7 mmol/L (3.5-5.1)
[2018-04-25 06:12] LABS: Bilirubin, Total 0.7 mg/dL (0.2-1.0)
[2018-04-25] MEDS: SODIUM CHLORIDE 0.9% 1,000 ML IV SCH ×3 (06:56→21:58)
[2018-04-25] MEDS: ENOXAPARIN SOD 40 MG/0.4 ML SYRINGE SC SCH (09:55)
[2018-04-25] MEDS: cefTRIAXone 1GM/10ml IVPUSH 10 ML IV SCH (09:55)
[2018-04-25] MEDS: PANTOPRAZOLE 40 MG TAB PO SCH (09:55)
[2018-04-25] MEDS ORDERED: ASPirin 81 mg TAB PO SCH (10:00)
[2018-04-25] MEDS ORDERED: VANCOMYCIN PER PHARMACY 0 MG IV SCH (12:00)
[2018-04-25] MEDS ORDERED: VANCOMYCIN 1GM/250ML 250 ML IV SCH (13:00)
[2018-04-25 15:16] VITALS: BP 127/64
[2018-04-25 17:36] VITALS: BP 110/62
[2018-04-25] MEDS: APIXABAN 2.5 MG TAB PO SCH ×2 (18:36→21:57)
[2018-04-25 21:12] LABS: Urine Bacteria FEW /hpf (None Seen); Urine Blood 2+ /uL (Negative); Urine WBC 10 /hpf (0 - 3)
[2018-04-25] MEDS: ATORVASTATIN 20 MG TAB PO SCH (21:57)
[2018-04-25 22:00] VITALS: BP 110/57
[2018-04-26 05:00] VITALS: BP 130/73
[2018-04-26] MEDS: SODIUM CHLORIDE 0.9% 1,000 ML IV SCH ×3 (06:52→21:56)
[2018-04-26 07:49] LABS: Basophils # (auto) 0 uL; Basophils % (auto) 0.2 % (0.0-2.0); Eosinophils # (auto) 0 uL; Hematocrit 28.3 % (41.0-53.0); Hemoglobin 8.9 g/dL (13.5-17.5); Lymphocytes # (auto) 0.5 uL; Lymphocytes % (auto) 3.2 % (10.0-50.0); Mean Corpuscular Hemoglobin 26.3 pg (28.0-32.0); Mean Corpuscular Hgb Conc. 31.4 g/dL (32.0-36.0); Mean Corpuscular Volume 83.6 fL (80.0-100.0); Monocytes # (auto) 0.6 uL; Monocytes % (auto) 3.8 % (0.0-12.0); Neutrophils # (auto) 13.6 uL; Neutrophils % (auto) 92.8 % (37.0-80.0); Platelet Count (auto) 379 10^3/uL (140-450); Red Blood Cells 3.38 10^6/uL (4.5-5.90); Red Cell Distribution Width 18.5 % (11.8-14.3); White Blood Cell 14.7 10^3/uL (4.4-10.8)
[2018-04-26 08:21] LABS: BUN/Creatinine Ratio 36.7; Calcium 7.3 mg/dL (8.5-10.1); Potassium 3.6 mmol/L (3.5-5.1)
[2018-04-26 09:00] VITALS: BP 121/70
[2018-04-26] MEDS: cefTRIAXone 1GM/10ml IVPUSH 10 ML IV SCH (10:30)
[2018-04-26] MEDS: APIXABAN 2.5 MG TAB PO SCH ×2 (10:30→21:54)
[2018-04-26] MEDS: PANTOPRAZOLE 40 MG TAB PO SCH (10:31)
[2018-04-26] MEDS: FINASTERIDE 5 MG TAB PO SCH (10:31)
[2018-04-26] MEDS: METOPROLOL TARTRATE 25 MG TAB PO SCH ×2 (10:32→21:55)
[2018-04-26 13:00] VITALS: BP 106/62
[2018-04-26] MEDS: VANCOMYCIN 1GM/250ML 250 ML IV SCH (17:10)
[2018-04-26 18:05] VITALS: BP 111/57
[2018-04-26 21:39] VITALS: BP 107/68
[2018-04-26] MEDS: ATORVASTATIN 20 MG TAB PO SCH (21:55)
[2018-04-27 05:43] VITALS: BP 128/66
[2018-04-27 06:01] LABS: Basophils # (auto) 0 uL; Eosinophils # (auto) 0 uL; Eosinophils % (auto) 0.2 % (0.0-7.0); Hematocrit 25.7 % (41.0-53.0); Hemoglobin 8.2 g/dL (13.5-17.5); Lymphocytes % (auto) 3.4 % (10.0-50.0); Mean Corpuscular Hemoglobin 26.5 pg (28.0-32.0); Monocytes # (auto) 0.5 uL; Monocytes % (auto) 3.6 % (0.0-12.0); Red Blood Cells 3.09 10^6/uL (4.5-5.90); White Blood Cell 13.1 10^3/uL (4.4-10.8)
[2018-04-27 06:04] LABS: Basophils % (auto) 0.2 % (0.0-2.0); Lymphocytes # (auto) 0.5 uL; Mean Corpuscular Hgb Conc. 31.7 g/dL (32.0-36.0); Mean Corpuscular Volume 83.3 fL (80.0-100.0); Neutrophils # (auto) 12.1 uL; Neutrophils % (auto) 92.6 % (37.0-80.0); Nucleated Red Blood Cells % 0.1 %; Platelet Count (auto) 345 10^3/uL (140-450)
[2018-04-27 06:18] LABS: BUN/Creatinine Ratio 35.2; Calcium 7.1 mg/dL (8.5-10.1); Potassium 3.4 mmol/L (3.5-5.1)
[2018-04-27] MEDS: SODIUM CHLORIDE 0.9% 1,000 ML IV SCH (06:26)
[2018-04-27 08:19] VITALS: BP 117/67
[2018-04-27] MEDS: cefTRIAXone 1GM/10ml IVPUSH 10 ML IV SCH (09:17)
[2018-04-27] MEDS: FINASTERIDE 5 MG TAB PO SCH (09:17)
[2018-04-27] MEDS: APIXABAN 2.5 MG TAB PO SCH ×2 (09:17→21:47)
[2018-04-27] MEDS: PANTOPRAZOLE 40 MG TAB PO SCH (09:17)
[2018-04-27] MEDS: METOPROLOL TARTRATE 25 MG TAB PO SCH ×2 (09:18→21:48)
[2018-04-27 11:54] VITALS: BP 121/70
[2018-04-27] MEDS ORDERED: POTASSIUM CHL 20 Meq TABLET PO ONE ×2 (12:45→13:15)
[2018-04-27] MEDS: SOD CHL 0.45% 1,000 ML IV SCH (12:47)
[2018-04-27 17:12] VITALS: BP 129/68
[2018-04-27] MEDS: VANCOMYCIN 1GM/250ML 250 ML IV SCH (17:30)
[2018-04-27] MEDS: BOOST 8 ounces PO SCH (18:00)
[2018-04-27] MEDS: PRO-STAT 64 30ML PO SCH (18:00)
[2018-04-27 21:30] VITALS: BP 123/53
[2018-04-27] MEDS: ATORVASTATIN 20 MG TAB PO SCH (21:47)
[2018-04-28] VITALS (8 sets, daily range): BP systolic 98–140; BP diastolic 61–80
[2018-04-28] MEDS: TEMAZEPAM 15 MG CAP PO PRN ×2 (00:11→21:55)
[2018-04-28] MEDS: LORazepam 0.5 MG TAB PO PRN (03:31)
[2018-04-28] MEDS: SOD CHL 0.45% 1,000 ML IV SCH ×2 (03:32→15:25)
[2018-04-28 05:48] LABS: Basophils # (auto) 0 uL; Basophils % (auto) 0.2 % (0.0-2.0); Hemoglobin 8.2 g/dL (13.5-17.5); Lymphocytes # (auto) 0.5 uL; Lymphocytes % (auto) 4.1 % (10.0-50.0); Nucleated Red Blood Cells % 0.1 %
[2018-04-28 05:52] LABS: Eosinophils # (auto) 0.1 uL; Eosinophils % (auto) 0.5 % (0.0-7.0); Hematocrit 26.1 % (41.0-53.0); Mean Corpuscular Hemoglobin 26.3 pg (28.0-32.0); Mean Corpuscular Hgb Conc. 31.2 g/dL (32.0-36.0); Mean Corpuscular Volume 84.3 fL (80.0-100.0); Monocytes # (auto) 0.6 uL; Monocytes % (auto) 4.3 % (0.0-12.0); Neutrophils # (auto) 11.8 uL; Neutrophils % (auto) 90.9 % (37.0-80.0); Platelet Count (auto) 371 10^3/uL (140-450); Red Cell Distribution Width 19.3 % (11.8-14.3)
[2018-04-28 06:32] LABS: BUN/Creatinine Ratio 30.6; Calcium 7.1 mg/dL (8.5-10.1); Potassium 3.7 mmol/L (3.5-5.1)
[2018-04-28] MEDS: BOOST 8 ounces PO SCH ×2 (08:00→18:00)
[2018-04-28] MEDS: PRO-STAT 64 30ML PO SCH ×2 (08:00→18:00)
[2018-04-28] MEDS: cefTRIAXone 1GM/10ml IVPUSH 10 ML IV SCH (09:42)
[2018-04-28] MEDS: APIXABAN 2.5 MG TAB PO SCH ×2 (09:42→21:54)
[2018-04-28] MEDS: FINASTERIDE 5 MG TAB PO SCH (09:43)
[2018-04-28] MEDS: PANTOPRAZOLE 40 MG TAB PO SCH (09:43)
[2018-04-28] MEDS: METOPROLOL TARTRATE 25 MG TAB PO SCH ×2 (09:43→22:00)
[2018-04-28] MEDS: VANCOMYCIN 1GM/250ML 250 ML IV SCH (12:39)
[2018-04-28] MEDS ORDERED: LIDOCAINE 1% (LOCAL ANESTH.) PF 5ml SDV ID ONE (16:45)
[2018-04-28] MEDS: ATORVASTATIN 20 MG TAB PO SCH (21:54)
[2018-04-28] MEDS: SODIUM CHLOR 0.9% PF (SALINE LOCK) 10ML VIAL/SYR IV SCH (21:57)
[2018-04-29] MEDS: LORazepam 0.5 MG TAB PO PRN (00:15)
[2018-04-29] MEDS: SOD CHL 0.45% 1,000 ML IV SCH ×2 (04:45→06:29)
[2018-04-29 05:26] VITALS: BP 108/73
[2018-04-29] MEDS: VANCOMYCIN 1GM/250ML 250 ML IV SCH (05:50)
[2018-04-29 07:36] LABS: Basophils # (auto) 0 uL; Basophils % (auto) 0.1 % (0.0-2.0); Eosinophils # (auto) 0.1 uL; Hemoglobin 8.2 g/dL (13.5-17.5); Lymphocytes # (auto) 0.5 uL; Lymphocytes % (auto) 4.9 % (10.0-50.0); Mean Corpuscular Hemoglobin 26.5 pg (28.0-32.0); Monocytes # (auto) 0.4 uL; Monocytes % (auto) 3.9 % (0.0-12.0); Red Blood Cells 3.11 10^6/uL (4.5-5.90)
[2018-04-29 07:38] LABS: Eosinophils % (auto) 0.9 % (0.0-7.0); Hematocrit 26.1 % (41.0-53.0); Mean Corpuscular Hgb Conc. 31.6 g/dL (32.0-36.0); Mean Corpuscular Volume 83.8 fL (80.0-100.0); Neutrophils # (auto) 9.5 uL; Neutrophils % (auto) 90.2 % (37.0-80.0); Platelet Count (auto) 365 10^3/uL (140-450); Red Cell Distribution Width 19.2 % (11.8-14.3); White Blood Cell 10.5 10^3/uL (4.4-10.8)
[2018-04-29 07:42] LABS: Potassium 3.9 mmol/L (3.5-5.1)
[2018-04-29 07:46] LABS: BUN/Creatinine Ratio 28.9; Calcium 7.4 mg/dL (8.5-10.1)
[2018-04-29] MEDS: PRO-STAT 64 30ML PO SCH ×2 (08:00→18:14)
[2018-04-29] MEDS: BOOST 8 ounces PO SCH ×2 (08:00→18:13)
[2018-04-29 08:39] VITALS: BP 116/57
[2018-04-29] MEDS: APIXABAN 2.5 MG TAB PO SCH ×2 (09:57→21:10)
[2018-04-29] MEDS: FINASTERIDE 5 MG TAB PO SCH (09:57)
[2018-04-29] MEDS: METOPROLOL TARTRATE 25 MG TAB PO SCH ×2 (09:57→21:23)
[2018-04-29] MEDS: PANTOPRAZOLE 40 MG TAB PO SCH (09:57)
[2018-04-29] MEDS: HYDROcodone-ACET 5/325MG TAB PO PRN (09:58)
[2018-04-29] MEDS: cefTRIAXone 1GM/10ml IVPUSH 10 ML IV SCH (09:58)
[2018-04-29] MEDS: SODIUM CHLOR 0.9% PF (SALINE LOCK) 10ML VIAL/SYR IV SCH ×2 (09:59→21:23)
[2018-04-29 13:00] VITALS: BP 114/65
[2018-04-29] MEDS: D5W 5% 1,000 ML IV SCH (16:44)
[2018-04-29] MEDS: ATORVASTATIN 20 MG TAB PO SCH (21:10)
[2018-04-29 22:00] VITALS: BP 123/60
[2018-04-30] MEDS: VANCOMYCIN 1GM/250ML 250 ML IV SCH
[2018-04-30 05:00] VITALS: BP 131/68
[2018-04-30] MEDS: BOOST 8 ounces PO SCH ×2 (08:18→18:00)
[2018-04-30] MEDS: PRO-STAT 64 30ML PO SCH ×2 (08:18→18:00)
[2018-04-30 09:00] VITALS: BP 135/79
[2018-04-30] MEDS: SODIUM CHLOR 0.9% PF (SALINE LOCK) 10ML VIAL/SYR IV SCH ×2 (10:00→21:51)
[2018-04-30] MEDS: HYDROcodone-ACET 5/325MG TAB PO PRN ×3 (10:00→21:51)
[2018-04-30] MEDS: APIXABAN 2.5 MG TAB PO SCH ×2 (10:00→21:51)
[2018-04-30] MEDS: METOPROLOL TARTRATE 25 MG TAB PO SCH ×2 (10:00→22:00)
[2018-04-30] MEDS: FINASTERIDE 5 MG TAB PO SCH (10:00)
[2018-04-30] MEDS: PANTOPRAZOLE 40 MG TAB PO SCH (10:00)
[2018-04-30] MEDS ORDERED: VANCOMYCIN 1GM/250ML 250 ML IV SCH (12:00)
[2018-04-30 13:40] LABS: Anion Gap 9 (5-15); BUN/Creatinine Ratio 22.4; Blood Urea Nitrogen 19 mg/dL (7-18); Calcium 7.6 mg/dL (8.5-10.1); Carbon Dioxide 21 mmol/L (21-32); Chloride 113 mmol/L (98-107); GFR African American 109 mL/min; GFR Non-African American 90 mL/min; Glucose 120 mg/dL (74-106); Potassium 3.9 mmol/L (3.5-5.1); Sodium 143 mmol/L (136-145)
[2018-04-30] MEDS: D5W 5% 1,000 ML IV SCH (14:16)
[2018-04-30 15:07] LABS: Eosinophils # (auto) 0.1 uL; Neutrophils # (auto) 9.8 uL; Nucleated Red Blood Cells % 0.1 %
[2018-04-30 15:09] LABS: Basophils # (auto) 0 uL; Basophils % (auto) 0.3 % (0.0-2.0); Eosinophils % (auto) 0.9 % (0.0-7.0); Hematocrit 26.8 % (41.0-53.0); Hemoglobin 8.5 g/dL (13.5-17.5); Lymphocytes # (auto) 0.6 uL; Lymphocytes % (auto) 5.6 % (10.0-50.0); Mean Corpuscular Hemoglobin 26.5 pg (28.0-32.0); Mean Corpuscular Hgb Conc. 31.9 g/dL (32.0-36.0); Mean Corpuscular Volume 83.1 fL (80.0-100.0); Monocytes # (auto) 0.5 uL; Monocytes % (auto) 4.3 % (0.0-12.0); Neutrophils % (auto) 88.9 % (37.0-80.0); Platelet Count (auto) 380 10^3/uL (140-450); Red Blood Cells 3.23 10^6/uL (4.5-5.90); Red Cell Distribution Width 18.7 % (11.8-14.3)
[2018-04-30 16:12] VITALS: BP 129/77
[2018-04-30] MEDS: ATORVASTATIN 20 MG TAB PO SCH (21:51)
[2018-04-30] MEDS: ceFAZolin 1GM 2 GM in D5W 5% 100 ML IV SCH (21:51)
[2018-04-30 22:22] VITALS: BP 113/71
[2018-05-01 05:29] VITALS: BP 115/67
[2018-05-01] MEDS: ceFAZolin 1GM 2 GM in D5W 5% 100 ML IV SCH ×3 (06:05→22:01)
[2018-05-01] MEDS: HYDROcodone-ACET 5/325MG TAB PO PRN ×3 (06:22→22:03)
[2018-05-01 07:04] LABS: Basophils # (auto) 0 uL; Eosinophils # (auto) 0.1 uL; Hematocrit 25.7 % (41.0-53.0); Hemoglobin 8.4 g/dL (13.5-17.5); Lymphocytes # (auto) 0.6 uL; Mean Corpuscular Hgb Conc. 32.5 g/dL (32.0-36.0); Monocytes # (auto) 0.3 uL; Neutrophils # (auto) 9.4 uL
[2018-05-01 07:06] LABS: Basophils % (auto) 0.4 % (0.0-2.0); Eosinophils % (auto) 1.1 % (0.0-7.0); Lymphocytes % (auto) 5.5 % (10.0-50.0); Mean Corpuscular Hemoglobin 26.8 pg (28.0-32.0); Mean Corpuscular Volume 82.3 fL (80.0-100.0); Platelet Count (auto) 343 10^3/uL (140-450); Red Blood Cells 3.13 10^6/uL (4.5-5.90); Red Cell Distribution Width 19.2 % (11.8-14.3); White Blood Cell 10.5 10^3/uL (4.4-10.8)
[2018-05-01 07:14] LABS: BUN/Creatinine Ratio 21.3; Calcium 7.4 mg/dL (8.5-10.1); Potassium 3.9 mmol/L (3.5-5.1)
[2018-05-01] MEDS: BOOST 8 ounces PO SCH ×2 (08:00→17:35)
[2018-05-01] MEDS: PRO-STAT 64 30ML PO SCH ×2 (08:00→17:35)
[2018-05-01 08:15] VITALS: BP 124/60
[2018-05-01] MEDS: D5W 5% 1,000 ML IV SCH (08:30)
[2018-05-01] MEDS: PANTOPRAZOLE 40 MG TAB PO SCH (10:06)
[2018-05-01] MEDS: FINASTERIDE 5 MG TAB PO SCH (10:07)
[2018-05-01] MEDS: APIXABAN 2.5 MG TAB PO SCH ×2 (10:08→22:02)
[2018-05-01] MEDS: SODIUM CHLOR 0.9% PF (SALINE LOCK) 10ML VIAL/SYR IV SCH ×2 (10:09→22:01)
[2018-05-01] MEDS: METOPROLOL TARTRATE 25 MG TAB PO SCH ×2 (10:09→22:02)
[2018-05-01] MEDS ORDERED: LORazepam 2MG/ML-1ML VIAL IV ONE (10:45)
[2018-05-01 12:00] VITALS: BP 108/56
[2018-05-01] MEDS ORDERED: GADOPENTETATE DIMEGLUMINE (10MMOL/20 ML) VIAL IV ONE (13:40)
[2018-05-01 17:00] VITALS: BP 116/71
[2018-05-01 21:40] VITALS: BP 113/61
[2018-05-01] MEDS: ATORVASTATIN 20 MG TAB PO SCH (22:02)
[2018-05-02] MEDS: TEMAZEPAM 15 MG CAP PO PRN (01:31)
[2018-05-02 03:46] VITALS: BP 125/63
[2018-05-02] MEDS: HYDROcodone-ACET 5/325MG TAB PO PRN ×2 (04:20→11:00)
[2018-05-02] MEDS: LORazepam 0.5 MG TAB PO PRN ×2 (04:20→11:00)
[2018-05-02] MEDS: ceFAZolin 1GM 2 GM in D5W 5% 100 ML IV SCH (06:05)
[2018-05-02] MEDS: D5W 5% 1,000 ML IV SCH (06:06)
[2018-05-02 07:55] VITALS: BP 125/63
[2018-05-02 08:06] LABS: Basophils # (auto) 0.1 uL; Eosinophils # (auto) 0.1 uL; Hemoglobin 8.9 g/dL (13.5-17.5); Lymphocytes # (auto) 0.6 uL; Monocytes # (auto) 0.4 uL; Neutrophils # (auto) 8.9 uL
[2018-05-02 08:08] LABS: Basophils % (auto) 0.7 % (0.0-2.0); Eosinophils % (auto) 0.6 % (0.0-7.0); Hematocrit 27.5 % (41.0-53.0); Lymphocytes % (auto) 5.5 % (10.0-50.0); Mean Corpuscular Hemoglobin 26.6 pg (28.0-32.0); Mean Corpuscular Hgb Conc. 32.2 g/dL (32.0-36.0); Mean Corpuscular Volume 82.6 fL (80.0-100.0); Monocytes % (auto) 3.8 % (0.0-12.0); Neutrophils % (auto) 89.4 % (37.0-80.0); Platelet Count (auto) 402 10^3/uL (140-450); Red Blood Cells 3.33 10^6/uL (4.5-5.90); Red Cell Distribution Width 19.2 % (11.8-14.3)
[2018-05-02 08:34] LABS: Albumin 1.6 g/dL (3.4-5.0); BUN/Creatinine Ratio 20.4; Bilirubin, Total 0.3 mg/dL (0.2-1.0); Calcium 7.8 mg/dL (8.5-10.1); Potassium 3.7 mmol/L (3.5-5.1); Total Protein 6.4 g/dL (6.4-8.2)
[2018-05-02 08:47] VITALS: BP 113/49
[2018-05-02 10:52] VITALS: BP 131/73
[2018-05-02] MEDS: APIXABAN 2.5 MG TAB PO SCH (10:53)
[2018-05-02] MEDS: FINASTERIDE 5 MG TAB PO SCH (10:53)
[2018-05-02] MEDS: METOPROLOL TARTRATE 25 MG TAB PO SCH (10:54)
[2018-05-02] MEDS: PANTOPRAZOLE 40 MG TAB PO SCH (10:54)
[2018-05-02 12:30] VITALS: BP 131/73
== END 2018-05-02 13:45 | disposition short-term general hospital (02) | DRG 871 ==
LOC: EDBD 12:45 → ER 12:48 → TELE 12:49 → TELE-WESTW 04-25 14:25 → WEST WING 04-30 08:27
PROVIDERS: ADMIT Internal Medicine; ATTEND Internal Medicine
PROC: 02HV33Z Insertion of Infusion Device into Superior Vena Cava, Percutaneous Approach (ICD-10-PCS; principal; 2018-04-28)
DX: A41.01 Sepsis due to Methicillin susceptible Staphylococcus aureus (principal); G93.41 Metabolic encephalopathy; R65.21 Severe sepsis with septic shock; N17.0 Acute kidney failure with tubular necrosis; E43 Unspecified severe protein-calorie malnutrition; I63.132 Cerebral infarction due to embolism of left carotid artery; S22.029A Unspecified fracture of second thoracic vertebra, initial encounter for closed fracture; S22.039A Unspecified fracture of third thoracic vertebra, initial encounter for closed fracture; N39.0 Urinary tract infection, site not specified; M62.82 Rhabdomyolysis; M46.24 Osteomyelitis of vertebra, thoracic region; J98.11 Atelectasis; J90 Pleural effusion, not elsewhere classified; E87.0 Hyperosmolality and hypernatremia; I48.1 Persistent atrial fibrillation; D68.69 Other thrombophilia; W18.39XA Other fall on same level, initial encounter; Y93.89 Activity, other specified; Y92.89 Other specified places as the place of occurrence of the external cause; Y99.8 Other external cause status; Z86.73 Personal history of transient ischemic attack (TIA), and cerebral infarction without residual deficits; Z82.49 Family history of ischemic heart disease and other diseases of the circulatory system; Z79.82 Long term (current) use of aspirin; Z79.01 Long term (current) use of anticoagulants; Z79.899 Other long term (current) drug therapy; N40.0 Benign prostatic hyperplasia without lower urinary tract symptoms; M51.24 Other intervertebral disc displacement, thoracic region; M46.44 Discitis, unspecified, thoracic region; K57.30 Diverticulosis of large intestine without perforation or abscess without bleeding; I67.2 Cerebral atherosclerosis; I70.8 Atherosclerosis of other arteries; I25.10 Atherosclerotic heart disease of native coronary artery without angina pectoris; I10 Essential (primary) hypertension; G93.89 Other specified disorders of brain; F41.9 Anxiety disorder, unspecified; F17.210 Nicotine dependence, cigarettes, uncomplicated; E03.9 Hypothyroidism, unspecified; D64.9 Anemia, unspecified; F03.90 Unspecified dementia, unspecified severity, without behavioral disturbance, psychotic disturbance, mood disturbance, and anxiety; M25.461 Effusion, right knee; Z68.34 Body mass index [BMI] 34.0-34.9, adult
CPT/HCPCS: 36415; 36569; 70450; 70551; 71045; 71250; 72125; 72146; 73060; 73110; 73562; 74176; 76775; 80048; 80053; 80202; 80320; 81001; 82550; 82607; 82746; 83605; 83880; 84443; 84484; 85014; 85018; 85025; 85045; 85610; 85652; 85730; 86141; 86850; 86900; 86901; 87040; 87077; 87081; 87086; 87088; 87186; 93005; 93886; 95819; 96361; 96365; 96375; 99291; C9113; J0690; J2543; J3490; J7060

== ENCOUNTER 2018-06-16 20:14 | Inpatient (IN) | payer MEDICARE, OTHER ==
[~2018-06-16] VITALS: Ht 172.7 cm; Wt 95.0 kg
[2018-06-16 21:01] LABS: Basophils # (auto) 0 uL; Basophils % (auto) 0.5 % (0.0-2.0); Eosinophils # (auto) 0.1 uL; Hemoglobin 7.5 g/dL (13.5-17.5); Lymphocytes # (auto) 0.3 uL; Mean Corpuscular Volume 88.3 fL (80.0-100.0); Monocytes # (auto) 0.2 uL
[2018-06-16 21:03] LABS: Eosinophils % (auto) 1.3 % (0.0-7.0); Hematocrit 22.7 % (41.0-53.0); Lymphocytes % (auto) 5.7 % (10.0-50.0); Mean Corpuscular Hemoglobin 29.1 pg (28.0-32.0); Monocytes % (auto) 3.7 % (0.0-12.0); Neutrophils # (auto) 4.7 uL; Neutrophils % (auto) 88.8 % (37.0-80.0); Nucleated Red Blood Cells % 0.1 %; Platelet Count (auto) 258 10^3/uL (140-450); Red Blood Cells 2.57 10^6/uL (4.5-5.90); White Blood Cell 5.3 10^3/uL (4.4-10.8)
[2018-06-16 21:07] LABS: Red Cell Distribution Width 22.5 % (11.8-14.3)
[2018-06-16 21:24] LABS: Alanine Aminotransferase 7 U/L (16-61); Albumin 1.8 g/dL (3.4-5.0); Anion Gap 10 (5-15); Aspartate Aminotransferase 15 U/L (15-37); BUN/Creatinine Ratio 30.2; Blood Urea Nitrogen 42 mg/dL (7-18); Calcium 7.4 mg/dL (8.5-10.1); Carbon Dioxide 27 mmol/L (21-32); Chloride 113 mmol/L (98-107); GFR African American 62 mL/min; GFR Non-African American 51 mL/min; Glucose 108 mg/dL (74-106); Sodium 150 mmol/L (136-145)
[2018-06-16 21:28] LABS: Alkaline Phosphatase 114 U/L (45-117); Bilirubin, Total 0.3 mg/dL (0.2-1.0); Total Protein 6.1 g/dL (6.4-8.2)
[2018-06-16] MEDS ORDERED: GLYCOPYRROLATE 0.2 MG/ML 1ML VIAL IV ONE (21:45)
[2018-06-16] MEDS ORDERED: GLYCOPYRROLATE 0.2 MG/ML 1ML VIAL ONE (21:50)
[2018-06-16] MEDS ORDERED: LORazepam 2MG/ML-1ML VIAL IV ONE (22:30)
[2018-06-16] MEDS: POTASSIUM CHL 20MEQ/100ML 100 ML IV SCH (23:30)
[2018-06-16] MEDS ORDERED: cefTRIAXone 1GM/10ml IVPUSH 10 ML IV ONE (23:30)
[2018-06-17] VITALS (25 sets, daily range): BP systolic 95–145; BP diastolic 41–105
[2018-06-17] MEDS ORDERED: ACETAMINOPHEN 500 MG TAB PO PRN (01:00)
[2018-06-17] MEDS ORDERED: SODIUM CHLORIDE 0.9% 1,000 ML IV ONE (01:00)
[2018-06-17] MEDS ORDERED: DOPamine 1600MCG/ML D5W 250 ML IV SCH (01:00)
[2018-06-17] MEDS ORDERED: ONDANSETRON HCL 4 MG/2 ML VIAL IV PRN (01:00)
[2018-06-17] MEDS: POTASSIUM CHL 20MEQ/100ML 100 ML IV SCH ×2 (01:30→03:30)
[2018-06-17 07:03] LABS: Basophils # (auto) 0 uL; Eosinophils # (auto) 0.1 uL; Monocytes # (auto) 0.2 uL; Neutrophils % (auto) 86.4 % (37.0-80.0)
[2018-06-17 07:05] LABS: Basophils % (auto) 0.5 % (0.0-2.0); Eosinophils % (auto) 1.7 % (0.0-7.0); Hematocrit 21.6 % (41.0-53.0); Lymphocytes # (auto) 0.3 uL; Mean Corpuscular Hemoglobin 28.7 pg (28.0-32.0); Mean Corpuscular Hgb Conc. 32.4 g/dL (32.0-36.0); Mean Corpuscular Volume 88.7 fL (80.0-100.0); Monocytes % (auto) 4.4 % (0.0-12.0); Neutrophils # (auto) 4.1 uL; Platelet Count (auto) 242 10^3/uL (140-450); Red Blood Cells 2.44 10^6/uL (4.5-5.90); White Blood Cell 4.8 10^3/uL (4.4-10.8)
[2018-06-17 07:18] LABS: Red Cell Distribution Width 22.2 % (11.8-14.3)
[2018-06-17] MEDS ORDERED: DOPamine 3200MCG/ML 250 ML IV SCH (07:30)
[2018-06-17 07:33] LABS: Albumin 1.7 g/dL (3.4-5.0); BUN/Creatinine Ratio 30.5; Bilirubin, Total 0.3 mg/dL (0.2-1.0); Calcium 7.5 mg/dL (8.5-10.1); Potassium 4.2 mmol/L (3.5-5.1); Total Protein 5.7 g/dL (6.4-8.2)
[2018-06-17] MEDS ORDERED: cefTRIAXone 1GM/10ml IVPUSH 10 ML IV SCH (09:00)
[2018-06-17] MEDS ORDERED: VANCOMYCIN PER PHARMACY 0 MG IV SCH (11:30)
[2018-06-17] MEDS ORDERED: SODIUM CHLORIDE 0.9% 500 ML IV ONE (11:30)
[2018-06-17] MEDS ORDERED: LEVOTHYROXINE SODIUM 100 MCG/5 ML INJ IV ONE (11:45)
[2018-06-17 12:07] LABS: Urine Amorphous Crystal FEW /hpf (None Seen); Urine Blood 3+ /uL (Negative); Urine Specific Gravity 1.014 (1.001-1.035); Urine WBC 66 /hpf (0 - 3)
[2018-06-17 12:13] LABS: Urine Bacteria MOD /hpf (None Seen)
[2018-06-17 12:24] LABS: Free T4 (Free Thyroxine) 0.48 ng/dL (0.89-1.76)
[2018-06-17 12:25] LABS: Free T3 0.75 pg/mL (2.3-4.2)
[2018-06-17] MEDS: PIPERACILLIN-TAZO 4.5GM 100 ML IV SCH ×2 (13:26→17:25)
[2018-06-17] MEDS: ALBUTEROL SULF 2.5 MG/0.5ML(0.5%) NEB SOLN NEB SCH ×3 (13:48→22:42)
[2018-06-17] MEDS: IPRATROPIUM BROM 0.5 MG/2.5ML INH SOL NEB SCH ×3 (13:48→22:42)
[2018-06-17] MEDS: VANCOMYCIN 1GM/250ML 250 ML IV SCH (14:27)
[2018-06-17] MEDS ORDERED: NITROGLYCERIN 0.4 MG SL TAB SL PRN (15:30)
[2018-06-17] MEDS ORDERED: MORPHINE SULFATE 4 MG/ML SYR/VIAL IV PRN (15:30)
[2018-06-17] MEDS: DOPamine 1600MCG/ML D5W 250 ML IV SCH (16:03)
[2018-06-17] MEDS ORDERED: PANTOPRAZOLE 40 MG/10 ML VIAL IV ONE (16:30)
[2018-06-17 16:32] LABS: Hematocrit 25.8 % (41.0-53.0); Hemoglobin 8.5 g/dL (13.5-17.5)
[2018-06-17] MEDS: D5W 5% 1,000 ML IV SCH (16:35)
[2018-06-17] MEDS: LORazepam 2MG/ML-1ML VIAL IV PRN (22:15)
[2018-06-17] MEDS: SODIUM CHLOR 0.9% PF (SALINE LOCK) 10ML VIAL/SYR IV SCH (22:16)
[2018-06-17] MEDS ORDERED: SUCCINYLCHOLINE CHLORIDE 20 MG/ML 10ML VIAL IV ONE (23:58)
[2018-06-17] MEDS ORDERED: ETOMIDATE (2MG/ML) 20ML VIAL IV ONE (23:58)
[2018-06-18] VITALS (103 sets, daily range): BP systolic 66–151; BP diastolic 33–93
[2018-06-18] MEDS ORDERED: MIDAZOLAM DRIP 50 mg/50mL 50 ML IV ONE ×2 (00:09→04:02)
[2018-06-18] MEDS: IPRATROPIUM BROM 0.5 MG/2.5ML INH SOL NEB SCH ×5 (02:20→21:59)
[2018-06-18] MEDS: ALBUTEROL SULF 2.5 MG/0.5ML(0.5%) NEB SOLN NEB SCH ×5 (02:20→21:59)
[2018-06-18 03:43] LABS: Basophils # (auto) 0.1 uL; Basophils % (auto) 0.8 % (0.0-2.0); Eosinophils # (auto) 0.1 uL; Eosinophils % (auto) 1.2 % (0.0-7.0); Hematocrit 31.7 % (41.0-53.0); Hemoglobin 10.2 g/dL (13.5-17.5); Lymphocytes # (auto) 0.4 uL; Lymphocytes % (auto) 4.7 % (10.0-50.0); Mean Corpuscular Hemoglobin 28.4 pg (28.0-32.0); Mean Corpuscular Hgb Conc. 32.2 g/dL (32.0-36.0); Mean Corpuscular Volume 88.1 fL (80.0-100.0); Monocytes # (auto) 0.2 uL; Monocytes % (auto) 2.8 % (0.0-12.0); Neutrophils # (auto) 7.2 uL; Neutrophils % (auto) 90.5 % (37.0-80.0); Nucleated Red Blood Cells % 0.1 %; Platelet Count (auto) 310 10^3/uL (140-450)
[2018-06-18 03:51] LABS: Red Cell Distribution Width 21.2 % (11.8-14.3)
[2018-06-18 03:57] LABS: INR 1.11 (0.9-1.15); Partial Thromboplastin Time 26.6 sec (23.78-33.04); Prothrombin Time 11.8 sec (9.27-12.13)
[2018-06-18 03:59] LABS: Potassium 3.1 mmol/L (3.5-5.1)
[2018-06-18 04:05] LABS: Albumin 1.9 g/dL (3.4-5.0); BUN/Creatinine Ratio 19.9; Calcium 7.7 mg/dL (8.5-10.1)
[2018-06-18 04:08] LABS: Bilirubin, Total 0.5 mg/dL (0.2-1.0); Total Protein 6.8 g/dL (6.4-8.2)
[2018-06-18] MEDS: MIDAZOLAM DRIP 50 mg/50mL 50 ML IV SCH ×4 (04:19→17:55)
[2018-06-18] MEDS: D5W 5% 1,000 ML IV SCH ×2 (04:50→14:15)
[2018-06-18] MEDS: PIPERACILLIN-TAZO 4.5GM 100 ML IV SCH ×4 (06:00→17:55)
[2018-06-18] MEDS: SODIUM CHLOR 0.9% PF (SALINE LOCK) 10ML VIAL/SYR IV SCH ×3 (06:09→22:00)
[2018-06-18] MEDS: DOPamine 1600MCG/ML D5W 250 ML IV SCH (08:25)
[2018-06-18] MEDS: VANCOMYCIN 1GM/250ML 250 ML IV SCH (08:29)
[2018-06-18] MEDS: LEVOTHYROXINE SODIUM 100 MCG/5 ML INJ IV SCH (10:17)
[2018-06-18] MEDS: PANTOPRAZOLE 40 MG/10 ML VIAL IV SCH (10:17)
[2018-06-18] MEDS: FREE WATER GT SCH ×3 (13:54→22:00)
[2018-06-19] VITALS (99 sets, daily range): BP systolic 79–151; BP diastolic 42–84
[2018-06-19] MEDS: PIPERACILLIN-TAZO 4.5GM 100 ML IV SCH ×2 (00:14→06:00)
[2018-06-19] MEDS: DOPamine 1600MCG/ML D5W 250 ML IV SCH (00:47)
[2018-06-19] MEDS: VANCOMYCIN 1GM/250ML 250 ML IV SCH ×2 (01:37→19:00)
[2018-06-19] MEDS: IPRATROPIUM BROM 0.5 MG/2.5ML INH SOL NEB SCH ×3 (01:54→22:14)
[2018-06-19] MEDS: ALBUTEROL SULF 2.5 MG/0.5ML(0.5%) NEB SOLN NEB SCH ×3 (01:54→22:14)
[2018-06-19] MEDS: FREE WATER GT SCH ×6 (02:00→21:42)
[2018-06-19 03:54] LABS: Basophils # (auto) 0 uL; Basophils % (auto) 0.4 % (0.0-2.0); Eosinophils # (auto) 0.1 uL; Eosinophils % (auto) 0.7 % (0.0-7.0); Hematocrit 29.9 % (41.0-53.0); Hemoglobin 9.5 g/dL (13.5-17.5); Lymphocytes # (auto) 0.4 uL; Lymphocytes % (auto) 3.7 % (10.0-50.0); Mean Corpuscular Hemoglobin 28.3 pg (28.0-32.0); Mean Corpuscular Volume 88.5 fL (80.0-100.0); Monocytes # (auto) 0.2 uL; Monocytes % (auto) 1.8 % (0.0-12.0); Neutrophils # (auto) 9.7 uL; Neutrophils % (auto) 93.4 % (37.0-80.0); Platelet Count (auto) 248 10^3/uL (140-450); Red Blood Cells 3.38 10^6/uL (4.5-5.90); White Blood Cell 10.4 10^3/uL (4.4-10.8)
[2018-06-19 04:20] LABS: Albumin 1.5 g/dL (3.4-5.0); Calcium 7.3 mg/dL (8.5-10.1)
[2018-06-19 04:22] LABS: BUN/Creatinine Ratio 17.2
[2018-06-19 04:24] LABS: Bilirubin, Total 0.5 mg/dL (0.2-1.0)
[2018-06-19 04:35] LABS: Potassium 2.8 mmol/L (3.5-5.1)
[2018-06-19] MEDS ORDERED: POTASSIUM CHL 20MEQ/100ML 200 ML IV ONE (05:55)
[2018-06-19] MEDS: SODIUM CHLOR 0.9% PF (SALINE LOCK) 10ML VIAL/SYR IV SCH ×3 (06:00→22:00)
[2018-06-19] MEDS: D5W 5% 1,000 ML IV SCH ×2 (07:30→14:03)
[2018-06-19] MEDS: MIDAZOLAM DRIP 50 mg/50mL 50 ML IV SCH (07:55)
[2018-06-19] MEDS: POTASSIUM CHL 20MEQ/100ML 100 ML IV SCH ×2 (08:15→08:58)
[2018-06-19 09:29] LABS: Phosphorus 2.7 mg/dL (2.5-4.90)
[2018-06-19] MEDS: LEVOTHYROXINE SODIUM 100 MCG/5 ML INJ IV SCH (09:41)
[2018-06-19] MEDS: PANTOPRAZOLE 40 MG/10 ML VIAL IV SCH (09:41)
[2018-06-19] MEDS: POTASSIUM EFFERVESENT TAB 25 MEQ PO SCH ×2 (14:02→21:59)
[2018-06-19] MEDS ORDERED: MORPHINE SULF INJ 2 MG/ML SYRINGE 1ML IV PRN (14:30)
[2018-06-19] MEDS: MEROPENEM 1gm/20ml IVPUSH 20 ML IV SCH ×2 (14:48→21:59)
[2018-06-19] MEDS: DOPamine 3200MCG/ML 250 ML IV SCH (15:52)
[2018-06-19] MEDS ORDERED: AMLO5TAB2 PO (19:36)
[2018-06-20] VITALS (100 sets, daily range): BP systolic 73–151; BP diastolic 40–95
[2018-06-20] MEDS: FREE WATER GT SCH ×6 (01:45→22:29)
[2018-06-20] MEDS: ALBUTEROL SULF 2.5 MG/0.5ML(0.5%) NEB SOLN NEB SCH ×6 (02:44→22:10)
[2018-06-20] MEDS: IPRATROPIUM BROM 0.5 MG/2.5ML INH SOL NEB SCH ×6 (02:44→22:10)
[2018-06-20 04:27] LABS: Basophils # (auto) 0.1 uL; Basophils % (auto) 0.5 % (0.0-2.0); Eosinophils # (auto) 0.4 uL; Eosinophils % (auto) 3.8 % (0.0-7.0); Hematocrit 27.1 % (41.0-53.0); Lymphocytes # (auto) 0.5 uL; Lymphocytes % (auto) 4.3 % (10.0-50.0); Mean Corpuscular Hemoglobin 28.8 pg (28.0-32.0); Mean Corpuscular Hgb Conc. 33.1 g/dL (32.0-36.0); Mean Corpuscular Volume 86.8 fL (80.0-100.0); Monocytes # (auto) 0.2 uL; Monocytes % (auto) 2.1 % (0.0-12.0); Neutrophils # (auto) 9.6 uL; Neutrophils % (auto) 89.3 % (37.0-80.0); Platelet Count (auto) 211 10^3/uL (140-450); Red Blood Cells 3.12 10^6/uL (4.5-5.90); White Blood Cell 10.8 10^3/uL (4.4-10.8)
[2018-06-20 04:41] LABS: Chloride 104 mmol/L (98-107); Potassium 3.4 mmol/L (3.5-5.1); Sodium 140 mmol/L (136-145)
[2018-06-20 04:45] LABS: Alanine Aminotransferase < 6 U/L (16-61); Albumin 1.3 g/dL (3.4-5.0); Anion Gap 10 (5-15); Aspartate Aminotransferase 8 U/L (15-37); BUN/Creatinine Ratio 16.8; Blood Urea Nitrogen 17 mg/dL (7-18); Calcium 7.4 mg/dL (8.5-10.1); Carbon Dioxide 26 mmol/L (21-32); GFR African American 90 mL/min; GFR Non-African American 74 mL/min; Glucose 96 mg/dL (74-106)
[2018-06-20 04:47] LABS: Alkaline Phosphatase 120 U/L (45-117); Bilirubin, Total 0.4 mg/dL (0.2-1.0); Total Protein 5.7 g/dL (6.4-8.2)
[2018-06-20 05:00] LABS: Red Cell Distribution Width 20.7 % (11.8-14.3)
[2018-06-20] MEDS: MEROPENEM 1gm/20ml IVPUSH 20 ML IV SCH ×3 (05:45→22:29)
[2018-06-20] MEDS: SODIUM CHLOR 0.9% PF (SALINE LOCK) 10ML VIAL/SYR IV SCH ×3 (06:00→22:29)
[2018-06-20] MEDS ORDERED: NOREPINEPHRINE 8 MG/250ML KIT 250 ML IV ONE (09:23)
[2018-06-20] MEDS: POTASSIUM EFFERVESENT TAB 25 MEQ GT SCH ×2 (09:57→22:29)
[2018-06-20] MEDS: LEVOTHYROXINE SODIUM 100 MCG/5 ML INJ IV SCH (09:58)
[2018-06-20] MEDS: FUROSEMIDE 40 MG/4 ML VIAL IV SCH (09:58)
[2018-06-20] MEDS: PANTOPRAZOLE 40 MG/10 ML VIAL IV SCH (09:58)
[2018-06-20] MEDS: NOREPINEPHRINE 8 MG/250ML KIT 250 ML IV SCH (11:26)
[2018-06-20] MEDS ORDERED: Nutren Pulmonary 1 Liter GT SCH (12:45)
[2018-06-20] MEDS: ALBUMIN 25% 100 ML IV SCH ×2 (12:46→17:47)
[2018-06-20] MEDS: VANCOMYCIN 1GM/250ML 250 ML IV SCH (12:47)
[2018-06-20] MEDS ORDERED: Jevity 1.2 Cal/Fiber 1 Liter GT SCH (13:00)
[2018-06-20] MEDS: FLUCONAZOLE 200MG/100ML 100 ML IV SCH (13:58)
[2018-06-20] MEDS: DOPamine 3200MCG/ML 250 ML IV SCH (14:15)
[2018-06-20] MEDS: DIGOXIN (250MCG/ML) 2 ML AMPULE IV SCH ×2 (17:46→23:30)
[2018-06-20] MEDS: LORazepam 2MG/ML-1ML VIAL IV PRN (22:29)
[2018-06-20] MEDS: ENOXAPARIN SOD 60 MG/0.6 ML SYRINGE SC SCH (22:29)
[2018-06-21] VITALS (102 sets, daily range): BP systolic 85–173; BP diastolic 30–100
[2018-06-21] MEDS: FREE WATER GT SCH ×6 (02:15→21:41)
[2018-06-21] MEDS: IPRATROPIUM BROM 0.5 MG/2.5ML INH SOL NEB SCH ×6 (02:25→21:53)
[2018-06-21] MEDS: ALBUTEROL SULF 2.5 MG/0.5ML(0.5%) NEB SOLN NEB SCH ×6 (02:25→21:54)
[2018-06-21] MEDS: ALBUMIN 25% 100 ML IV SCH (04:00)
[2018-06-21] MEDS: MIDAZOLAM DRIP 50 mg/50mL 50 ML IV SCH (04:19)
[2018-06-21 04:54] LABS: Basophils # (auto) 0 uL; Lymphocytes # (auto) 0.3 uL; Lymphocytes % (auto) 3.4 % (10.0-50.0); Monocytes # (auto) 0.2 uL; Neutrophils # (auto) 8.4 uL; White Blood Cell 9.3 10^3/uL (4.4-10.8)
[2018-06-21 04:56] LABS: Basophils % (auto) 0.3 % (0.0-2.0); Eosinophils # (auto) 0.2 uL; Eosinophils % (auto) 2.4 % (0.0-7.0); Hemoglobin 8.1 g/dL (13.5-17.5); Mean Corpuscular Hemoglobin 29.4 pg (28.0-32.0); Mean Corpuscular Hgb Conc. 33.7 g/dL (32.0-36.0); Mean Corpuscular Volume 87.3 fL (80.0-100.0); Monocytes % (auto) 2.7 % (0.0-12.0); Neutrophils % (auto) 91.2 % (37.0-80.0); Platelet Count (auto) 181 10^3/uL (140-450); Red Blood Cells 2.75 10^6/uL (4.5-5.90)
[2018-06-21 04:59] LABS: Red Cell Distribution Width 20.4 % (11.8-14.3)
[2018-06-21] MEDS: DIGOXIN (250MCG/ML) 2 ML AMPULE IV SCH ×2 (05:12→09:48)
[2018-06-21 05:15] LABS: Albumin 1.9 g/dL (3.4-5.0); BUN/Creatinine Ratio 17.2; Bilirubin, Total 0.6 mg/dL (0.2-1.0); Calcium 7.5 mg/dL (8.5-10.1); Potassium 3.6 mmol/L (3.5-5.1); Total Protein 5.6 g/dL (6.4-8.2)
[2018-06-21] MEDS: SODIUM CHLOR 0.9% PF (SALINE LOCK) 10ML VIAL/SYR IV SCH ×3 (06:15→21:40)
[2018-06-21] MEDS: MEROPENEM 1gm/20ml IVPUSH 20 ML IV SCH ×3 (06:15→21:40)
[2018-06-21] MEDS: VANCOMYCIN 1GM/250ML 250 ML IV SCH (06:35)
[2018-06-21] MEDS: DOPamine 3200MCG/ML 250 ML IV SCH ×2 (08:45→14:15)
[2018-06-21] MEDS: LEVOTHYROXINE SODIUM 100 MCG/5 ML INJ IV SCH (09:47)
[2018-06-21] MEDS: FLUCONAZOLE 200MG/100ML 100 ML IV SCH (09:47)
[2018-06-21] MEDS: FUROSEMIDE 40 MG/4 ML VIAL IV SCH (09:48)
[2018-06-21] MEDS: ENOXAPARIN SOD 60 MG/0.6 ML SYRINGE SC SCH ×2 (09:48→21:41)
[2018-06-21] MEDS: PANTOPRAZOLE 40 MG/10 ML VIAL IV SCH (09:48)
[2018-06-21] MEDS: POTASSIUM EFFERVESENT TAB 25 MEQ GT SCH ×2 (09:49→21:40)
[2018-06-21] MEDS: NOREPINEPHRINE 8 MG/250ML KIT 250 ML IV SCH (11:26)
[2018-06-21] MEDS ORDERED: metroNIDAZOLE 500 MG TAB PO SCH (12:00)
[2018-06-21] MEDS: VANCOMYCIN HCL 125MG/5ML ORAL SOL PO SCH ×3 (12:29→21:41)
[2018-06-21] MEDS ORDERED: SODIUM CHLORIDE 0.9% 500 ML IV ONE (13:15)
[2018-06-21] MEDS: LORazepam 2MG/ML-1ML VIAL IV PRN (15:09)
[2018-06-21] MEDS: fentaNYL Drip 2500mCg/250mlNS 250 ML IV SCH (22:00)
[2018-06-22] VITALS (103 sets, daily range): BP systolic 84–164; BP diastolic 38–101
[2018-06-22] MEDS: VANCOMYCIN 1GM/250ML 250 ML IV SCH ×2 (01:00→18:54)
[2018-06-22] MEDS: IPRATROPIUM BROM 0.5 MG/2.5ML INH SOL NEB SCH ×6 (01:51→22:20)
[2018-06-22] MEDS: ALBUTEROL SULF 2.5 MG/0.5ML(0.5%) NEB SOLN NEB SCH ×6 (01:51→22:20)
[2018-06-22] MEDS: FREE WATER GT SCH ×7 (02:00→22:39)
[2018-06-22 03:46] LABS: Basophils # (auto) 0 uL; Basophils % (auto) 0.7 % (0.0-2.0); Eosinophils # (auto) 0.3 uL; Eosinophils % (auto) 4.1 % (0.0-7.0); Hematocrit 27.5 % (41.0-53.0); Lymphocytes # (auto) 0.3 uL; Lymphocytes % (auto) 4.9 % (10.0-50.0); Mean Corpuscular Hemoglobin 28.4 pg (28.0-32.0); Mean Corpuscular Hgb Conc. 32.9 g/dL (32.0-36.0); Mean Corpuscular Volume 86.3 fL (80.0-100.0); Monocytes # (auto) 0.2 uL; Monocytes % (auto) 3.5 % (0.0-12.0); Neutrophils # (auto) 6.1 uL; Neutrophils % (auto) 86.8 % (37.0-80.0); Platelet Count (auto) 180 10^3/uL (140-450); Red Blood Cells 3.19 10^6/uL (4.5-5.90)
[2018-06-22 03:53] LABS: Red Cell Distribution Width 20.6 % (11.8-14.3)
[2018-06-22 04:08] LABS: Albumin 2.2 g/dL (3.4-5.0); Calcium 7.6 mg/dL (8.5-10.1)
[2018-06-22 04:11] LABS: Bilirubin, Total 0.8 mg/dL (0.2-1.0); Total Protein 5.9 g/dL (6.4-8.2)
[2018-06-22] MEDS: MIDAZOLAM DRIP 50 mg/50mL 50 ML IV SCH (04:19)
[2018-06-22] MEDS: MEROPENEM 1gm/20ml IVPUSH 20 ML IV SCH ×3 (06:04→22:39)
[2018-06-22] MEDS: SODIUM CHLOR 0.9% PF (SALINE LOCK) 10ML VIAL/SYR IV SCH ×3 (06:04→22:40)
[2018-06-22] MEDS: VANCOMYCIN HCL 125MG/5ML ORAL SOL PO SCH ×4 (06:04→22:39)
[2018-06-22] MEDS: DIGOXIN (250MCG/ML) 2 ML AMPULE IV SCH (10:00)
[2018-06-22] MEDS: ENOXAPARIN SOD 60 MG/0.6 ML SYRINGE SC SCH ×2 (11:16→22:39)
[2018-06-22] MEDS: POTASSIUM EFFERVESENT TAB 25 MEQ GT SCH ×2 (11:16→22:39)
[2018-06-22] MEDS: FUROSEMIDE 40 MG/4 ML VIAL IV SCH (11:16)
[2018-06-22] MEDS: FLUCONAZOLE 200MG/100ML 100 ML IV SCH (11:16)
[2018-06-22] MEDS: PANTOPRAZOLE 40 MG/10 ML VIAL IV SCH (11:16)
[2018-06-22] MEDS: NOREPINEPHRINE 8 MG/250ML KIT 250 ML IV SCH (11:26)
[2018-06-22] MEDS: LORazepam 2MG/ML-1ML VIAL IV PRN ×2 (11:53→18:54)
[2018-06-22] MEDS: LEVOTHYROXINE SODIUM 100 MCG/5 ML INJ IV SCH (13:57)
[2018-06-22] MEDS: DOPamine 3200MCG/ML 250 ML IV SCH (14:15)
[2018-06-22] MEDS: fentaNYL Drip 2500mCg/250mlNS 250 ML IV SCH (23:19)
[2018-06-23] VITALS (104 sets, daily range): BP systolic 70–171; BP diastolic 39–112
[2018-06-23] MEDS: FREE WATER GT SCH ×3 (01:51→09:19)
[2018-06-23] MEDS: ALBUTEROL SULF 2.5 MG/0.5ML(0.5%) NEB SOLN NEB SCH ×6 (02:20→22:01)
[2018-06-23] MEDS: IPRATROPIUM BROM 0.5 MG/2.5ML INH SOL NEB SCH ×6 (02:20→22:01)
[2018-06-23] MEDS: LORazepam 2MG/ML-1ML VIAL IV PRN ×2 (02:58→11:43)
[2018-06-23] MEDS: MIDAZOLAM DRIP 50 mg/50mL 50 ML IV SCH (04:19)
[2018-06-23 04:38] LABS: Basophils # (auto) 0.1 uL; Basophils % (auto) 0.9 % (0.0-2.0); Eosinophils # (auto) 0.3 uL; Eosinophils % (auto) 4.7 % (0.0-7.0); Hematocrit 28.8 % (41.0-53.0); Hemoglobin 9.6 g/dL (13.5-17.5); Lymphocytes # (auto) 0.6 uL; Lymphocytes % (auto) 8.5 % (10.0-50.0); Mean Corpuscular Hemoglobin 28.9 pg (28.0-32.0); Mean Corpuscular Hgb Conc. 33.5 g/dL (32.0-36.0); Mean Corpuscular Volume 86.4 fL (80.0-100.0); Monocytes # (auto) 0.5 uL; Monocytes % (auto) 7.7 % (0.0-12.0); Neutrophils # (auto) 5.5 uL; Neutrophils % (auto) 78.2 % (37.0-80.0); Nucleated Red Blood Cells % 0.1 %; Platelet Count (auto) 173 10^3/uL (140-450); Red Blood Cells 3.33 10^6/uL (4.5-5.90); White Blood Cell 7.1 10^3/uL (4.4-10.8)
[2018-06-23 04:42] LABS: Red Cell Distribution Width 20.6 % (11.8-14.3)
[2018-06-23 04:55] LABS: BUN/Creatinine Ratio 19.6; Bilirubin, Total 0.6 mg/dL (0.2-1.0); Calcium 8.1 mg/dL (8.5-10.1); Potassium 4.4 mmol/L (3.5-5.1); Total Protein 6.2 g/dL (6.4-8.2)
[2018-06-23] MEDS: MEROPENEM 1gm/20ml IVPUSH 20 ML IV SCH ×3 (05:45→21:50)
[2018-06-23] MEDS: SODIUM CHLOR 0.9% PF (SALINE LOCK) 10ML VIAL/SYR IV SCH ×3 (05:46→21:51)
[2018-06-23] MEDS: DOPamine 3200MCG/ML 250 ML IV SCH (05:46)
[2018-06-23] MEDS: VANCOMYCIN HCL 125MG/5ML ORAL SOL PO SCH ×4 (05:46→21:51)
[2018-06-23] MEDS ORDERED: MORPHINE SULF INJ 2 MG/ML SYRINGE 1ML IV PRN (09:00)
[2018-06-23] MEDS ORDERED: BUMETANIDE (0.25MG/ML) 4 ML VIAL IV ONE (09:00)
[2018-06-23] MEDS: POTASSIUM EFFERVESENT TAB 25 MEQ GT SCH ×2 (09:18→21:50)
[2018-06-23] MEDS: PANTOPRAZOLE 40 MG/10 ML VIAL IV SCH (09:18)
[2018-06-23] MEDS: DIGOXIN (250MCG/ML) 2 ML AMPULE IV SCH (09:19)
[2018-06-23] MEDS: FLUCONAZOLE 200MG/100ML 100 ML IV SCH (09:19)
[2018-06-23] MEDS: LEVOTHYROXINE SODIUM 100 MCG/5 ML INJ IV SCH (09:19)
[2018-06-23] MEDS: ENOXAPARIN SOD 60 MG/0.6 ML SYRINGE SC SCH (09:19)
[2018-06-23] MEDS: VANCOMYCIN 1GM/250ML 250 ML IV SCH (14:36)
[2018-06-23] MEDS: NOREPINEPHRINE 8 MG/250ML KIT 250 ML IV SCH (18:52)
[2018-06-23] MEDS: fentaNYL Drip 2500mCg/250mlNS 250 ML IV SCH (21:37)
[2018-06-24] VITALS (108 sets, daily range): BP systolic 69–170; BP diastolic 36–83
[2018-06-24] MEDS: IPRATROPIUM BROM 0.5 MG/2.5ML INH SOL NEB SCH ×6 (02:11→22:06)
[2018-06-24] MEDS: ALBUTEROL SULF 2.5 MG/0.5ML(0.5%) NEB SOLN NEB SCH ×6 (02:11→22:07)
[2018-06-24 03:54] LABS: Hematocrit 28.5 % (41.0-53.0); Hemoglobin 9.3 g/dL (13.5-17.5); Mean Corpuscular Hgb Conc. 32.6 g/dL (32.0-36.0); Mean Corpuscular Volume 86.1 fL (80.0-100.0); Platelet Count (auto) 181 10^3/uL (140-450); Red Blood Cells 3.31 10^6/uL (4.5-5.90); White Blood Cell 6.6 10^3/uL (4.4-10.8)
[2018-06-24 03:57] LABS: Red Cell Distribution Width 20.3 % (11.8-14.3)
[2018-06-24 03:58] LABS: Albumin 1.9 g/dL (3.4-5.0); BUN/Creatinine Ratio 20.2; Basophils % (manual) 0 (0.0-2.0); Blast Cells 0; Calcium 8.2 mg/dL (8.5-10.1); Metamyelocytes % 0; Partial Thromboplastin Time 30.9 sec (23.78-33.04); Potassium 4.7 mmol/L (3.5-5.1); Promyelocytes % 0; Prothrombin Time 10.7 sec (9.27-12.13); Reactive Lymphocytes 0
[2018-06-24 04:01] LABS: Bilirubin, Total 0.5 mg/dL (0.2-1.0); Total Protein 6.3 g/dL (6.4-8.2)
[2018-06-24] MEDS: MIDAZOLAM DRIP 50 mg/50mL 50 ML IV SCH (04:13)
[2018-06-24] MEDS: fentaNYL Drip 2500mCg/250mlNS 250 ML IV SCH ×2 (04:13→17:54)
[2018-06-24 04:36] LABS: Band Neutrophils % (manual) 10; Eosinophils % (manual) 3 (0-7); Lymphocytes % (manual) 7 (10.0-50.0); Monocytes % (manual) 11 (0-12); Myelocytes % 1
[2018-06-24] MEDS: NOREPINEPHRINE 8 MG/250ML KIT 250 ML IV SCH (04:43)
[2018-06-24] MEDS: SODIUM CHLOR 0.9% PF (SALINE LOCK) 10ML VIAL/SYR IV SCH ×3 (06:11→23:07)
[2018-06-24] MEDS: MEROPENEM 1gm/20ml IVPUSH 20 ML IV SCH ×3 (06:11→23:07)
[2018-06-24] MEDS: VANCOMYCIN HCL 125MG/5ML ORAL SOL PO SCH ×4 (06:11→23:07)
[2018-06-24] MEDS: LORazepam 2MG/ML-1ML VIAL IV PRN (06:17)
[2018-06-24] MEDS: VANCOMYCIN 1GM/250ML 250 ML IV SCH (08:23)
[2018-06-24] MEDS: DIGOXIN (250MCG/ML) 2 ML AMPULE IV SCH (10:00)
[2018-06-24] MEDS: PANTOPRAZOLE 40 MG/10 ML VIAL IV SCH (10:21)
[2018-06-24] MEDS: POTASSIUM EFFERVESENT TAB 25 MEQ GT SCH ×2 (10:22→23:07)
[2018-06-24] MEDS: LEVOTHYROXINE SODIUM 100 MCG/5 ML INJ IV SCH (10:22)
[2018-06-24] MEDS: FLUCONAZOLE 200MG/100ML 100 ML IV SCH (10:22)
[2018-06-24] MEDS: ACETYLCYSTEINE 10 %(100MG/ML) SOL 4ML NEB SCH ×3 (14:14→22:07)
[2018-06-24] MEDS: DOPamine 3200MCG/ML 250 ML IV SCH (17:54)
[2018-06-25] VITALS (101 sets, daily range): BP systolic 70–186; BP diastolic 36–97
[2018-06-25] MEDS: VANCOMYCIN 1GM/250ML 250 ML IV SCH (00:43)
[2018-06-25] MEDS: ALBUTEROL SULF 2.5 MG/0.5ML(0.5%) NEB SOLN NEB SCH ×6 (02:00→22:11)
[2018-06-25] MEDS: ACETYLCYSTEINE 10 %(100MG/ML) SOL 4ML NEB SCH ×5 (02:00→22:11)
[2018-06-25] MEDS: IPRATROPIUM BROM 0.5 MG/2.5ML INH SOL NEB SCH ×6 (02:00→22:10)
[2018-06-25 03:57] LABS: Hematocrit 28.3 % (41.0-53.0); Hemoglobin 9.1 g/dL (13.5-17.5); Mean Corpuscular Hgb Conc. 32.3 g/dL (32.0-36.0); Mean Corpuscular Volume 86.7 fL (80.0-100.0); Platelet Count (auto) 174 10^3/uL (140-450); Red Blood Cells 3.26 10^6/uL (4.5-5.90); White Blood Cell 5.7 10^3/uL (4.4-10.8)
[2018-06-25 04:06] LABS: Red Cell Distribution Width 20.6 % (11.8-14.3)
[2018-06-25 04:07] LABS: Basophils % (manual) 0 (0.0-2.0); Blast Cells 0; Metamyelocytes % 0; Myelocytes % 0; Promyelocytes % 0; Reactive Lymphocytes 0
[2018-06-25 04:13] LABS: Potassium 4.4 mmol/L (3.5-5.1)
[2018-06-25 04:18] LABS: BUN/Creatinine Ratio 24.8; Calcium 8.5 mg/dL (8.5-10.1)
[2018-06-25] MEDS: MIDAZOLAM DRIP 50 mg/50mL 50 ML IV SCH (04:19)
[2018-06-25 04:53] LABS: Band Neutrophils % (manual) 8; Eosinophils % (manual) 6 (0-7); Lymphocytes % (manual) 16 (10.0-50.0); Monocytes % (manual) 7 (0-12)
[2018-06-25] MEDS: MEROPENEM 1gm/20ml IVPUSH 20 ML IV SCH ×3 (06:14→21:48)
[2018-06-25] MEDS: SODIUM CHLOR 0.9% PF (SALINE LOCK) 10ML VIAL/SYR IV SCH ×3 (06:14→21:49)
[2018-06-25] MEDS: VANCOMYCIN HCL 125MG/5ML ORAL SOL PO SCH ×4 (06:47→21:49)
[2018-06-25] MEDS: FLUCONAZOLE 200MG/100ML 100 ML IV SCH (09:57)
[2018-06-25] MEDS: POTASSIUM EFFERVESENT TAB 25 MEQ GT SCH ×3 (09:58→21:48)
[2018-06-25] MEDS: LEVOTHYROXINE SODIUM 100 MCG/5 ML INJ IV SCH (09:58)
[2018-06-25] MEDS: PANTOPRAZOLE 40 MG/10 ML VIAL IV SCH (09:58)
[2018-06-25] MEDS: fentaNYL Drip 2500mCg/250mlNS 250 ML IV SCH (10:19)
[2018-06-25] MEDS: NOREPINEPHRINE 8 MG/250ML KIT 250 ML IV SCH (11:26)
[2018-06-25] MEDS: DOPamine 3200MCG/ML 250 ML IV SCH (14:15)
[2018-06-25] MEDS: LORazepam 2MG/ML-1ML VIAL IV PRN (21:48)
[2018-06-26] VITALS (100 sets, daily range): BP systolic 74–148; BP diastolic 37–84
[2018-06-26] MEDS: fentaNYL Drip 2500mCg/250mlNS 250 ML IV SCH (01:08)
[2018-06-26] MEDS: ACETYLCYSTEINE 10 %(100MG/ML) SOL 4ML NEB SCH ×6 (02:10→22:21)
[2018-06-26] MEDS: ALBUTEROL SULF 2.5 MG/0.5ML(0.5%) NEB SOLN NEB SCH ×6 (02:10→22:21)
[2018-06-26] MEDS: IPRATROPIUM BROM 0.5 MG/2.5ML INH SOL NEB SCH ×6 (02:10→22:21)
[2018-06-26] MEDS: LORazepam 2MG/ML-1ML VIAL IV PRN (04:15)
[2018-06-26] MEDS: MIDAZOLAM DRIP 50 mg/50mL 50 ML IV SCH (04:19)
[2018-06-26] MEDS: SODIUM CHLOR 0.9% PF (SALINE LOCK) 10ML VIAL/SYR IV SCH ×3 (05:37→22:28)
[2018-06-26] MEDS: MEROPENEM 1gm/20ml IVPUSH 20 ML IV SCH ×3 (05:37→22:25)
[2018-06-26] MEDS: VANCOMYCIN HCL 125MG/5ML ORAL SOL PO SCH ×4 (05:37→22:00)
[2018-06-26 08:30] LABS: Alanine Aminotransferase 20 U/L (16-61); Albumin 1.8 g/dL (3.4-5.0); Aspartate Aminotransferase 35 U/L (15-37); BUN/Creatinine Ratio 24.5; Blood Urea Nitrogen 23 mg/dL (7-18); Calcium 8.8 mg/dL (8.5-10.1); Carbon Dioxide 24 mmol/L (21-32); GFR African American 97 mL/min; GFR Non-African American 81 mL/min; Glucose 92 mg/dL (74-106)
[2018-06-26 08:47] LABS: Alkaline Phosphatase 152 U/L (45-117); Anion Gap 11 (5-15); Bilirubin, Total 0.5 mg/dL (0.2-1.0); Chloride 105 mmol/L (98-107); Potassium 4.8 mmol/L (3.5-5.1); Sodium 140 mmol/L (136-145); Total Protein 6.7 g/dL (6.4-8.2)
[2018-06-26] MEDS ORDERED: BUMETANIDE (0.25MG/ML) 4 ML VIAL IV ONE (09:30)
[2018-06-26 09:40] LABS: Magnesium 2.2 mg/dL (1.6-2.6)
[2018-06-26] MEDS: POTASSIUM EFFERVESENT TAB 25 MEQ GT SCH ×2 (10:00→22:00)
[2018-06-26] MEDS ORDERED: MORPHINE SULF INJ 2 MG/ML SYRINGE 1ML IV PRN (10:45)
[2018-06-26] MEDS: LEVOTHYROXINE SODIUM 100 MCG/5 ML INJ IV SCH (11:03)
[2018-06-26] MEDS: PANTOPRAZOLE 40 MG/10 ML VIAL IV SCH (11:03)
[2018-06-26] MEDS: FLUCONAZOLE 200MG/100ML 100 ML IV SCH (11:14)
[2018-06-26] MEDS: NOREPINEPHRINE 8 MG/250ML KIT 250 ML IV SCH (11:26)
[2018-06-26] MEDS: DOPamine 3200MCG/ML 250 ML IV SCH (14:15)
[2018-06-27] VITALS (89 sets, daily range): BP systolic 79–151; BP diastolic 33–92
[2018-06-27] MEDS: ALBUTEROL SULF 2.5 MG/0.5ML(0.5%) NEB SOLN NEB SCH ×5 (01:45→18:17)
[2018-06-27] MEDS: ACETYLCYSTEINE 10 %(100MG/ML) SOL 4ML NEB SCH ×5 (01:45→18:17)
[2018-06-27] MEDS: IPRATROPIUM BROM 0.5 MG/2.5ML INH SOL NEB SCH ×5 (01:45→18:17)
[2018-06-27] MEDS: DOPamine 3200MCG/ML 250 ML IV SCH (01:52)
[2018-06-27] MEDS: MIDAZOLAM DRIP 50 mg/50mL 50 ML IV SCH (04:19)
[2018-06-27] MEDS: MEROPENEM 1gm/20ml IVPUSH 20 ML IV SCH ×3 (05:47→22:30)
[2018-06-27] MEDS: VANCOMYCIN HCL 125MG/5ML ORAL SOL PO SCH ×4 (05:52→22:30)
[2018-06-27] MEDS: SODIUM CHLOR 0.9% PF (SALINE LOCK) 10ML VIAL/SYR IV SCH ×3 (05:55→22:30)
[2018-06-27] MEDS: POTASSIUM EFFERVESENT TAB 25 MEQ GT SCH (10:00)
[2018-06-27] MEDS ORDERED: ENOXAPARIN SOD 40 MG/0.4 ML SYRINGE SC SCH (10:00)
[2018-06-27] MEDS: PANTOPRAZOLE 40 MG/10 ML VIAL IV SCH (10:43)
[2018-06-27] MEDS: FLUCONAZOLE 200MG/100ML 100 ML IV SCH (10:43)
[2018-06-27] MEDS: LEVOTHYROXINE SODIUM 100 MCG/5 ML INJ IV SCH (10:43)
[2018-06-27] MEDS: NOREPINEPHRINE 8 MG/250ML KIT 250 ML IV SCH ×2 (10:44→11:26)
[2018-06-28] VITALS (88 sets, daily range): BP systolic 80–137; BP diastolic 33–88
[2018-06-28] MEDS: ALBUTEROL SULF 2.5 MG/0.5ML(0.5%) NEB SOLN NEB SCH ×6 (02:19→22:30)
[2018-06-28] MEDS: IPRATROPIUM BROM 0.5 MG/2.5ML INH SOL NEB SCH ×6 (02:19→22:30)
[2018-06-28] MEDS: ACETYLCYSTEINE 10 %(100MG/ML) SOL 4ML NEB SCH ×6 (02:19→22:30)
[2018-06-28 04:28] LABS: Basophils # (auto) 0.1 uL; Basophils % (auto) 0.6 % (0.0-2.0); Eosinophils # (auto) 0.1 uL; Eosinophils % (auto) 0.6 % (0.0-7.0); Hematocrit 23.9 % (41.0-53.0); Lymphocytes # (auto) 0.5 uL; Lymphocytes % (auto) 5.1 % (10.0-50.0); Mean Corpuscular Hemoglobin 28.9 pg (28.0-32.0); Mean Corpuscular Hgb Conc. 33.6 g/dL (32.0-36.0); Mean Corpuscular Volume 86.2 fL (80.0-100.0); Monocytes # (auto) 0.4 uL; Monocytes % (auto) 3.9 % (0.0-12.0); Neutrophils # (auto) 8.3 uL; Neutrophils % (auto) 89.8 % (37.0-80.0); Platelet Count (auto) 179 10^3/uL (140-450); Red Blood Cells 2.77 10^6/uL (4.5-5.90); Red Cell Distribution Width 19.9 % (11.8-14.3); White Blood Cell 9.2 10^3/uL (4.4-10.8)
[2018-06-28 04:54] LABS: Albumin 1.9 g/dL (3.4-5.0); BUN/Creatinine Ratio 24.5; Bilirubin, Total 0.4 mg/dL (0.2-1.0); Calcium 8.4 mg/dL (8.5-10.1); Potassium 3.4 mmol/L (3.5-5.1); Total Protein 6.2 g/dL (6.4-8.2)
[2018-06-28] MEDS: MEROPENEM 1gm/20ml IVPUSH 20 ML IV SCH ×3 (06:00→22:01)
[2018-06-28] MEDS: SODIUM CHLOR 0.9% PF (SALINE LOCK) 10ML VIAL/SYR IV SCH ×3 (06:00→22:00)
[2018-06-28] MEDS: VANCOMYCIN HCL 125MG/5ML ORAL SOL PO SCH ×4 (06:00→22:01)
[2018-06-28] MEDS: PANTOPRAZOLE 40 MG/10 ML VIAL IV SCH (10:00)
[2018-06-28] MEDS: LEVOTHYROXINE SODIUM 100 MCG/5 ML INJ IV SCH (10:24)
[2018-06-28] MEDS: FLUCONAZOLE 200MG/100ML 100 ML IV SCH (10:24)
[2018-06-28] MEDS: NOREPINEPHRINE 8 MG/250ML KIT 250 ML IV SCH (11:26)
[2018-06-28] MEDS ORDERED: POTASSIUM CHL 20MEQ/100ML 100 ML IV ONE (12:00)
[2018-06-28] MEDS ORDERED: ENOXAPARIN SOD 40 MG/0.4 ML SYRINGE SC ONE (12:00)
[2018-06-28] MEDS ORDERED: METOCLOPRAMIDE HCL 5MG/ml INJ 2ml VIAL IV ONE (14:00)
[2018-06-28] MEDS: DOPamine 3200MCG/ML 250 ML IV SCH (14:15)
[2018-06-29] VITALS (95 sets, daily range): BP systolic 69–148; BP diastolic 29–87
[2018-06-29] MEDS: ACETYLCYSTEINE 10 %(100MG/ML) SOL 4ML NEB SCH ×5 (02:09→19:02)
[2018-06-29] MEDS: ALBUTEROL SULF 2.5 MG/0.5ML(0.5%) NEB SOLN NEB SCH ×5 (02:09→19:02)
[2018-06-29] MEDS: IPRATROPIUM BROM 0.5 MG/2.5ML INH SOL NEB SCH ×5 (02:09→19:02)
[2018-06-29 04:41] LABS: Basophils # (auto) 0.1 uL; Basophils % (auto) 0.4 % (0.0-2.0); Eosinophils # (auto) 0.1 uL; Eosinophils % (auto) 0.4 % (0.0-7.0); Hematocrit 27.9 % (41.0-53.0); Hemoglobin 8.8 g/dL (13.5-17.5); Lymphocytes # (auto) 0.4 uL; Lymphocytes % (auto) 2.9 % (10.0-50.0); Mean Corpuscular Hemoglobin 27.4 pg (28.0-32.0); Mean Corpuscular Hgb Conc. 31.6 g/dL (32.0-36.0); Mean Corpuscular Volume 86.7 fL (80.0-100.0); Monocytes # (auto) 0.5 uL; Neutrophils # (auto) 14.1 uL; Neutrophils % (auto) 93.3 % (37.0-80.0); Platelet Count (auto) 227 10^3/uL (140-450); Red Blood Cells 3.22 10^6/uL (4.5-5.90); White Blood Cell 15.1 10^3/uL (4.4-10.8)
[2018-06-29 05:38] LABS: Red Cell Distribution Width 20.2 % (11.8-14.3)
[2018-06-29] MEDS: VANCOMYCIN HCL 125MG/5ML ORAL SOL PO SCH ×4 (06:15→21:53)
[2018-06-29] MEDS: MEROPENEM 1gm/20ml IVPUSH 20 ML IV SCH ×3 (06:15→21:53)
[2018-06-29] MEDS: SODIUM CHLOR 0.9% PF (SALINE LOCK) 10ML VIAL/SYR IV SCH ×3 (06:25→21:54)
[2018-06-29 07:50] LABS: Calcium 8.8 mg/dL (8.5-10.1); Potassium 3.6 mmol/L (3.5-5.1)
[2018-06-29 07:52] LABS: BUN/Creatinine Ratio 23.8
[2018-06-29] MEDS ORDERED: ENOXAPARIN SOD 40 MG/0.4 ML SYRINGE SC SCH (10:00)
[2018-06-29] MEDS: PANTOPRAZOLE 40 MG/10 ML VIAL IV SCH (10:00)
[2018-06-29] MEDS: LEVOTHYROXINE SODIUM 100 MCG/5 ML INJ IV SCH (10:00)
[2018-06-29] MEDS: FLUCONAZOLE 200MG/100ML 100 ML IV SCH (10:00)
[2018-06-29] MEDS: NOREPINEPHRINE 8 MG/250ML KIT 250 ML IV SCH (10:15)
[2018-06-29] MEDS: DOPamine 3200MCG/ML 250 ML IV SCH (13:41)
[2018-06-29] MEDS: HALOPERIDOL LACTATE 5 MG/ML INJ VIAL IM PRN (22:53)
[2018-06-30] VITALS (87 sets, daily range): BP systolic 82–159; BP diastolic 35–104
[2018-06-30] MEDS: ALBUTEROL SULF 2.5 MG/0.5ML(0.5%) NEB SOLN NEB SCH ×6 (00:46→18:34)
[2018-06-30] MEDS: IPRATROPIUM BROM 0.5 MG/2.5ML INH SOL NEB SCH ×6 (00:46→18:34)
[2018-06-30] MEDS: ACETYLCYSTEINE 10 %(100MG/ML) SOL 4ML NEB SCH ×6 (00:47→18:34)
[2018-06-30 03:48] LABS: Basophils # (auto) 0.1 uL; Eosinophils # (auto) 0.1 uL; Eosinophils % (auto) 0.5 % (0.0-7.0); Lymphocytes # (auto) 0.5 uL; Monocytes # (auto) 0.7 uL
[2018-06-30 03:50] LABS: Basophils % (auto) 0.4 % (0.0-2.0); Hemoglobin 8.1 g/dL (13.5-17.5); Lymphocytes % (auto) 3.1 % (10.0-50.0); Mean Corpuscular Hemoglobin 27.7 pg (28.0-32.0); Mean Corpuscular Hgb Conc. 32.5 g/dL (32.0-36.0); Mean Corpuscular Volume 85.1 fL (80.0-100.0); Neutrophils # (auto) 15.5 uL; Nucleated Red Blood Cells % 0.1 %; Platelet Count (auto) 233 10^3/uL (140-450); Red Blood Cells 2.94 10^6/uL (4.5-5.90); Red Cell Distribution Width 19.4 % (11.8-14.3); White Blood Cell 16.8 10^3/uL (4.4-10.8)
[2018-06-30] MEDS: SODIUM CHLOR 0.9% PF (SALINE LOCK) 10ML VIAL/SYR IV SCH ×3 (05:20→22:00)
[2018-06-30] MEDS: VANCOMYCIN HCL 125MG/5ML ORAL SOL PO SCH ×4 (05:20→22:00)
[2018-06-30] MEDS: MEROPENEM 1gm/20ml IVPUSH 20 ML IV SCH ×3 (05:20→22:00)
[2018-06-30] MEDS: HALOPERIDOL LACTATE 5 MG/ML INJ VIAL IM PRN ×2 (06:42→16:37)
[2018-06-30] MEDS ORDERED: POTASSIUM CHL 20MEQ/100ML 100 ML IV ONE (06:45)
[2018-06-30] MEDS: PANTOPRAZOLE 40 MG/10 ML VIAL IV SCH (10:40)
[2018-06-30] MEDS: LEVOTHYROXINE SODIUM 100 MCG/5 ML INJ IV SCH (10:41)
[2018-06-30] MEDS: D5W 5% 1,000 ML IV SCH (10:41)
[2018-06-30] MEDS: NOREPINEPHRINE 8 MG/250ML KIT 250 ML IV SCH (11:26)
[2018-06-30] MEDS: LORazepam 2MG/ML-1ML VIAL IV PRN ×2 (11:39→19:50)
[2018-06-30] MEDS ORDERED: ENOXAPARIN SOD 40 MG/0.4 ML SYRINGE SC ONE (11:45)
[2018-06-30] MEDS: DOPamine 3200MCG/ML 250 ML IV SCH (14:15)
[2018-07-01] VITALS (48 sets, daily range): BP systolic 58–128; BP diastolic 31–120
[2018-07-01] MEDS: IPRATROPIUM BROM 0.5 MG/2.5ML INH SOL NEB SCH ×3 (00:37→06:03)
[2018-07-01] MEDS: ALBUTEROL SULF 2.5 MG/0.5ML(0.5%) NEB SOLN NEB SCH ×3 (00:37→06:03)
[2018-07-01] MEDS: ACETYLCYSTEINE 10 %(100MG/ML) SOL 4ML NEB SCH ×3 (00:38→06:03)
[2018-07-01 04:24] LABS: Basophils # (auto) 0.1 uL; Basophils % (auto) 0.4 % (0.0-2.0); Eosinophils # (auto) 0 uL; Hematocrit 26.8 % (41.0-53.0); Hemoglobin 8.7 g/dL (13.5-17.5); Lymphocytes # (auto) 0.4 uL; Mean Corpuscular Hemoglobin 28.5 pg (28.0-32.0); Mean Corpuscular Hgb Conc. 32.3 g/dL (32.0-36.0); Mean Corpuscular Volume 88.1 fL (80.0-100.0); Monocytes # (auto) 0.7 uL; Neutrophils # (auto) 17.3 uL; Neutrophils % (auto) 93.6 % (37.0-80.0); Platelet Count (auto) 243 10^3/uL (140-450); Red Blood Cells 3.05 10^6/uL (4.5-5.90); Red Cell Distribution Width 19.8 % (11.8-14.3); White Blood Cell 18.5 10^3/uL (4.4-10.8)
[2018-07-01 04:39] LABS: BUN/Creatinine Ratio 23.4; Calcium 8.5 mg/dL (8.5-10.1); Potassium 3.4 mmol/L (3.5-5.1)
[2018-07-01] MEDS: SODIUM CHLOR 0.9% PF (SALINE LOCK) 10ML VIAL/SYR IV SCH (06:00)
[2018-07-01] MEDS: MEROPENEM 1gm/20ml IVPUSH 20 ML IV SCH (06:00)
[2018-07-01] MEDS: VANCOMYCIN HCL 125MG/5ML ORAL SOL PO SCH (06:00)
[2018-07-01] MEDS: D5W 5% 1,000 ML IV SCH (06:53)
[2018-07-01] MEDS ORDERED: MORPHINE SULF INJ 2 MG/ML SYRINGE 1ML IV PRN (09:30)
[2018-07-01] MEDS ORDERED: LORazepam 2MG/ML-1ML VIAL IV PRN (09:45)
[2018-07-01] MEDS ORDERED: ENOXAPARIN SOD 40 MG/0.4 ML SYRINGE SC SCH (10:00)
[2018-07-01] MEDS ORDERED: FLUCONAZOLE 200MG/100ML 100 ML IV SCH (10:00)
[2018-07-01] MEDS ORDERED: Pro-Stat SF 30ml Vanilla PO SCH (18:00)
[2018-07-01] MEDS ORDERED: Ensure Enlive Strawberry 8oz Bottle PO SCH (18:00)
== END 2018-07-01 17:21 | disposition expired | DRG 870 ==
LOC: ER 20:14 → EDBD 20:14 → TELE 20:15 → DOU IN ICU 06-17 03:34 → ICU WEST 06-17 15:56
PROVIDERS: ADMIT Nurse Practitioner Family; ATTEND Internal Medicine
PROC: 30233N1 Transfusion of Nonautologous Red Blood Cells into Peripheral Vein, Percutaneous Approach (ICD-10-PCS; 2018-06-17)
PROC: 5A1955Z Respiratory Ventilation, Greater than 96 Consecutive Hours (ICD-10-PCS; principal; 2018-06-18)
PROC: 0BH17EZ Insertion of Endotracheal Airway into Trachea, Via Natural or Artificial Opening (ICD-10-PCS; 2018-06-18)
DX: A41.9 Sepsis, unspecified organism (principal); G93.41 Metabolic encephalopathy; E43 Unspecified severe protein-calorie malnutrition; J69.0 Pneumonitis due to inhalation of food and vomit; N17.0 Acute kidney failure with tubular necrosis; J96.01 Acute respiratory failure with hypoxia; E87.0 Hyperosmolality and hypernatremia; A04.72 Enterocolitis due to Clostridium difficile, not specified as recurrent; J90 Pleural effusion, not elsewhere classified; N30.01 Acute cystitis with hematuria; B37.89 Other sites of candidiasis; Z51.5 Encounter for palliative care; Z66 Do not resuscitate; E03.9 Hypothyroidism, unspecified; B96.5 Pseudomonas (aeruginosa) (mallei) (pseudomallei) as the cause of diseases classified elsewhere; E87.6 Hypokalemia; Z68.31 Body mass index [BMI] 31.0-31.9, adult; E86.0 Dehydration; L89.219 Pressure ulcer of right hip, unspecified stage; D64.9 Anemia, unspecified; Z96.659 Presence of unspecified artificial knee joint; E83.52 Hypercalcemia; F03.90 Unspecified dementia, unspecified severity, without behavioral disturbance, psychotic disturbance, mood disturbance, and anxiety; F17.200 Nicotine dependence, unspecified, uncomplicated; F41.9 Anxiety disorder, unspecified; I10 Essential (primary) hypertension; B96.89 Other specified bacterial agents as the cause of diseases classified elsewhere; I48.91 Unspecified atrial fibrillation; I49.5 Sick sinus syndrome; J44.9 Chronic obstructive pulmonary disease, unspecified; M46.40 Discitis, unspecified, site unspecified; Z79.899 Other long term (current) drug therapy; Z82.49 Family history of ischemic heart disease and other diseases of the circulatory system; Z86.14 Personal history of Methicillin resistant Staphylococcus aureus infection; Z86.73 Personal history of transient ischemic attack (TIA), and cerebral infarction without residual deficits
CPT/HCPCS: 36415; 36600; 70450; 71045; 76604; 80048; 80053; 80202; 81001; 82805; 83605; 83615; 83735; 83880; 84100; 84132; 84439; 84443; 84481; 84484; 85007; 85014; 85018; 85025; 85027; 85379; 85610; 85730; 86850; 86900; 86901; 86920; 87040; 87070; 87077; 87081; 87086; 87186; 87205; 87493; 92610; 93005; 94002; 94003; 94640; 96361; 96374; 96375; 96379; 97163; 99291; A4565; A6257; C9113; J0330; J0696; J1265; J1450; J2250; J2405; J2543; J3480; J3490; P9047